=== PATIENT | female | born 1945 | race Caucasian/White ===

== ENCOUNTER 2017-11-24 10:24 | Day surgery (SDC) | payer MEDICARE, OTHER, SELFPAY ==
--- NOTE | 2017-11-24 07:53 | PM.PREOP ---
Pre-operative Note Interval Note Pre-op Check: Yes History & Physical Reviewed by Physician Changes: No
[2017-11-24 11:40] VITALS: BP 132/70; PULSE 54; RESP 18; TEMP 36.6; O2SAT 100; BMI 25.8
[2017-11-24] MEDS: PROPARACAINE 0.5% OPHTH SOL 2 DROPS EYE-OP (11:45)
[2017-11-24] MEDS: CATARACT EYE COMPOUND (10 DROPS/SYRINGE) 3 DROPS EYE-OP (11:50)
[2017-11-24] MEDS: METOPROLOL 12.5 MG TABLET PO (12:40)
--- NOTE | 2017-11-24 12:56 | PM.PREOP ---
Pre-operative Note Interval Note Pre-op Check: Yes History & Physical Reviewed by Physician Changes: No
[2017-11-24] MEDS: LIDOCAINE 2% 4 ML, BUPIVACAINE 0.5% (PF) 4 ML, HYALURONIDASE 150 UNIT INJ (13:06)
[2017-11-24] MEDS: LIDOCAINE 1% W/EPI INJ 20 ML INJ (13:06)
[2017-11-24] MEDS: CHONDROIDTIN/SOD HYALURONATE 1.05 ML SYRINGE INTRAOCULA (13:33)
[2017-11-24] MEDS: CARBACHOL 1.5 ML VIAL INJ (13:33)
[2017-11-24] MEDS: HYALURONATE SODIUM 10 MG/ML SYRINGE INJ (13:33)
[2017-11-24] MEDS: BALANCED SALT IRRIG SOLN NO.2 15 ML IRRIG.SOLN IRR (13:33)
[2017-11-24] MEDS: MOXIFLOXACIN OPHTH DROPS 3 ML BOTTLE 2 DROPS INJ (13:34)
[2017-11-24] MEDS: NEOMYCIN/POLY/DEX OPHTH OINT 1 APPLIC EYE-LEFT (13:35)
[2017-11-24] MEDS: OFLOXACIN 0.3% OPHTH 5 ML 2 DROPS EYE-LEFT (13:35)
[2017-11-24] MEDS: TRIAMCINOLONE 50 MG/5 ML VIAL INJ (13:36)
[2017-11-24] MEDS: PHENYLEPHRINE/LIDOCAINE VIAL (OR) 0.2 ML EYE-OP (13:36)
[2017-11-24] MEDS: BALANCED SALT IRRIG SOLN NO.2 500 ML, EPINEPHrine 1 MG IRR (13:37)
--- NOTE | 2017-11-24 13:59 | PM.OP.1 ---
Operative Date/Time/Diagnoses Date of procedure: 11/24/17 Time of procedure: 13:59 Procedure & Clinicians Procedure: Date of service: November 24, 2017 Preoperative diagnoses: 1. Nuclear sclerotic Cataract 2. Spastic entropion. 3. Autoimmune hypothyroidism 4. Deafness right ear Postoperative diagnoses: 1. Cataract removal with phacoemulsification with posterior chamber intraocular lens implant. Procedure: Phacoemulsification with posterior chamber intraocular lens implant Surgeon: Kassandra Aguilar MD Complications: None Specimen: None Implant: ZCBOO+19.0 Blood loss: None Anesthesia: Retrobulbar with monitored standby Anesthesiologist: Harman Hoff Description of procedure: Patient is a 72 year old the with decreased vision due to cataract which is affecting activities of daily living. She wants surgery to improve vision. She was taken to the operating room and given IV sedation. A retrobulbar block consisting of 6 cc of 2% xylocaine without epinephrine mixed half and half with 0.5% Marcaine with 1 cc of hyaluronidase added is placed between the medial and lateral 1/3 of the inferior orbital rim. Lid akinesia is obtain with 1% xylocaine with epinephrine infiltrated along the lid margin and along the lower lid due to severe spastic entropion. The eye is manually massaged for 30 sec, prepped using Betadine solution, and draped in the usual sterile fashion. Temporal approach was made, a 1 mm side-port incision was made at the 12 oclock meridian. Phenylephrine 1.5% mixed with 1% xylocaine 0.2 cc was placed into the anterior chamber. Viscoat followed by Healon was then placed. A 2.6 mm clear incision with a 2.6 mm blade was placed at the 3 oclock meridian. A 360 degree capsulorrhexis style capsulotomy was then performed with a cystitome needle on a Healon. Hydrodelineation and hydrodissection were performed. The phacoemulsification unit is introduced, and sculpting notice used to groove the central lens. It is then removed in chopping mode. Epi nucleus is removed with epinuclear mode and irrigation aspiration was used to remove the peripheral cortex. The posterior capsule is polished. The intraocular lens is selected, inspected, power confirmed, and placed in the posterior chamber. The pupil was constricted. The wound was stromally hydrated and tested for leaks, there was none and was left sutureless. Vigamox 0.1 cc was placed into the anterior chamber. Kenalog 0.2 cc was placed in the superior subconjunctival space. A drop of antibiotic and was placed and the eye was patched and shielded. The patient was stable and returned to the recovery room in excellent condition. Dictated by: Kassandra Aguilar MD Copy to: [facility] Same procedure as scheduled: Yes
[2017-11-24 17:36] VITALS: BP 128/67; PULSE 55; RESP 16; TEMP 36.2; O2SAT 100
--- NOTE | 2017-11-24 17:44 | SUR.PHASEII ---
vitals charted at 1736 were vitals taken at 1400
== END 2017-11-24 14:05 | disposition home or self-care (01) ==
LOC: OR 10:28
PROVIDERS: PCP Family Medicine; Visit Provider Ophthalmology
DX: H25.12 Age-related nuclear cataract, left eye (principal); E03.9 Hypothyroidism, unspecified; I49.9 Cardiac arrhythmia, unspecified; H02.0 Entropion and trichiasis of eyelid
CPT/HCPCS: J0171; J2250; J2704; J3010; J3301; J3470

== ENCOUNTER → 2017-11-25 09:30 | Outpatient (CLI) | payer MEDICARE, OTHER, SELFPAY ==
[2017-11-25 12:18] LABS: Thyroid Stimulating Hormone 0.49 uIU/mL (0.47-4.68)
== END ==
PROVIDERS: PCP Family Medicine; Visit Provider Family Medicine
DX: E03.9 Hypothyroidism, unspecified (principal)
CPT/HCPCS: 36415; 84443

== ENCOUNTER 2017-12-29 08:15 | Day surgery (SDC) | payer MEDICARE, OTHER, SELFPAY ==
--- NOTE | 2017-12-29 08:13 | PM.PREOP ---
Pre-operative Note Interval Note Pre-op Check: Yes History & Physical Reviewed by Physician Changes: No
[2017-12-29] MEDS: PROPARACAINE 0.5% OPHTH SOL 2 DROPS EYE-OP (08:45)
[2017-12-29] MEDS: CATARACT EYE COMPOUND (10 DROPS/SYRINGE) 3 DROPS EYE-OP (08:50)
[2017-12-29 08:55] VITALS: BP 129/75; PULSE 64; RESP 15; TEMP 36.2; O2SAT 100; BMI 25.4
[2017-12-29] MEDS: CARBACHOL 1.5 ML VIAL INJ (10:14)
[2017-12-29] MEDS: BALANCED SALT IRRIG SOLN NO.2 15 ML IRRIG.SOLN IRR (10:14)
[2017-12-29] MEDS: MOXIFLOXACIN OPHTH DROPS 3 ML BOTTLE 2 DROPS INJ (10:15)
[2017-12-29] MEDS: LIDOCAINE 1% W/EPI INJ 20 ML INJ (10:15)
[2017-12-29] MEDS: CHONDROIDTIN/SOD HYALURONATE 1.05 ML SYRINGE INTRAOCULA (10:15)
[2017-12-29] MEDS: HYALURONATE SODIUM 10 MG/ML SYRINGE INJ (10:15)
[2017-12-29] MEDS: OFLOXACIN 0.3% OPHTH 5 ML 2 DROPS EYE-RIGHT (10:16)
[2017-12-29] MEDS: PHENYLEPHRINE/LIDOCAINE VIAL (OR) 0.2 ML EYE-OP (10:16)
[2017-12-29] MEDS: NEOMYCIN/POLY/DEX OPHTH OINT 1 APPLIC EYE-RIGHT (10:16)
[2017-12-29] MEDS: LIDOCAINE 2% 4 ML, BUPIVACAINE 0.5% (PF) 4 ML, HYALURONIDASE 150 UNIT INJ (10:17)
[2017-12-29] MEDS: BALANCED SALT IRRIG SOLN NO.2 500 ML, EPINEPHrine 1 MG IRR (10:17)
[2017-12-29] MEDS: TRIAMCINOLONE 50 MG/5 ML VIAL INJ (10:17)
[2017-12-29 10:45] VITALS: BP 138/68; PULSE 54; RESP 15; TEMP 36; O2SAT 100
[2017-12-29 10:59] VITALS: BP 138/68; PULSE 51; RESP 16; TEMP 36.2; O2SAT 100
--- NOTE | 2017-12-29 14:28 | PM.OP.1 ---
Operative Date/Time/Diagnoses Date of procedure: 12/29/17 Time of procedure: 10:00 Procedure & Clinicians Procedure: Date of service: December 29, 2017 Preoperative diagnoses: 1. Right nuclear sclerotic and cortical cataract. 2. Ectropion. 3. Autoimmune hypothyroidism. 4. Cardiac arrhythmia. Postoperative diagnoses: 1. Cataract removal with phacoemulsification with posterior chamber intraocular lens implant. Procedure: Phacoemulsification with posterior chamber intraocular lens implant Surgeon: Kassandra Aguilar MD Complications: None Specimen: None Implant: ZCBOO+19.5 Blood loss: None Anesthesia: Retrobulbar with monitored standby Anesthesiologist: Delfino Valdez M.D. Description of procedure: Patient is a 72 year old female with decreased vision due to cataract which is affecting activities of daily living. She wants surgery to improve vision. She will need ectropion repair both eyes after she is healed. She was taken to the operating room and given IV sedation. A retrobulbar block insert consisting of 6 cc of 2% xylocaine without epinephrine mixed half and half with 0.5% Marcaine with 1 cc of hyaluronidase added is placed between the medial and lateral 1/3 of the inferior orbital rim. Lid akinesia is obtain with 1% xylocaine with epinephrine infiltrated along the lid margin. The eye is manually massaged for 30 sec, prepped using Betadine solution, and draped in the usual sterile fashion. Temporal approach was made, a 1 mm side-port incision was made at the 7:30 position. Phenylephrine 1.5% mixed with 1% xylocaine 0.2 cc was placed into the anterior chamber. Viscoat followed by Jaskaran was then placed. A 2.6 mm clear incision with a 2.6 mm blade was placed at the 170 degree meridian. Zonules are slightly loose but hold well during the procedure. A 360 degree capsulorrhexis style capsulotomy was then performed with a cystitome needle on a Healon. Hydrodelineation and hydrodissection were performed. The phacoemulsification unit is introduced, and sculpting notice used to groove the central lens. It is then removed in chopping mode. Epi nucleus is removed with epinuclear mode and irrigation aspiration was used to remove the peripheral cortex. The posterior capsule is polished. The intraocular lens is selected, inspected, power confirmed, and placed in the posterior chamber. The pupil was constricted. The wound was stromally hydrated and tested for leaks, there was none and was left sutureless. Vigamox 0.1 cc was placed into the anterior chamber. Kenalog 0.2 cc was placed in the superior subconjunctival space. A drop of antibiotic and was placed and the eye was patched and shielded. The patient was stable and returned to the recovery room in excellent condition. Dictated by: Kassandra Aguilar MD Copy to: [facility]
== END 2017-12-29 11:05 | disposition home or self-care (01) ==
LOC: OR 08:18
PROVIDERS: PCP Family Medicine; Visit Provider Ophthalmology
DX: H25.11 Age-related nuclear cataract, right eye (principal); H26.8 Other specified cataract; H02.109 Unspecified ectropion of unspecified eye, unspecified eyelid; E06.3 Autoimmune thyroiditis; I49.9 Cardiac arrhythmia, unspecified
CPT/HCPCS: J0171; J2704; J3301; J3470

== ENCOUNTER → 2018-01-28 08:46 | Outpatient (CLI) | payer MEDICARE, OTHER, SELFPAY ==
[2018-01-28 10:06] LABS: Add Manual Diff / Slide Review NO; Basophils Percent Auto 1.5 % (0-2); Eosinophils Percent Auto 4.3 % (2-4); Lymphocytes Percent Auto 26.6 % (25-40); Mean Corpuscular HGB Conc 33.4 % (30-36); Mean Corpuscular Hemoglobin 31.3 PG (26-34); Mean Corpuscular Volume 93.6 fL (80-100); Monocytes Percent Auto 12.6 % (3-14); Neutrophils Absolute Auto 2300 /uL (3000-5900); Platelet Count 258 X10^3/uL (150-400); Red Blood Cell Count 4.48 X10^6/uL (4.0-5.2); Red Cell Distribution Width 13.3 % (11.6-14.8); White Blood Cell Count 4.2 X10^3/uL (4.5-11.0)
[2018-01-28 10:23] LABS: Alanine Aminotransferase 59 IU/L (9-52); Albumin 4.3 g/dL (3.5-5.0); Albumin Globulin Ratio 1.4 (1.0-2.8); Alkaline Phosphatase 148 U/L (38-126); Aspartate Aminotransferase 59 IU/L (14-36); Bilirubin Total 0.9 mg/dL (0.2-1.3); Blood Urea Nitrogen 25 mg/dL (7-17); Carbon Dioxide 26 mmol/L (22-32); Chloride 105 mmol/L (98-107); Cholesterol 208 mg/dL (140-199); Estimated Glomerular Filt Rate 54.1 mL/min (>60); Glucose 87 mg/dL (80-110); HDL Cholesterol 71 mg/dL (40-60); HEMOLYSIS < 15 (0-50); LDL Cholesterol Calculated 123 mg/dL (<100); Potassium 3.8 mmol/L (3.4-5.1); Sodium 143 mmol/L (137-145); Total Protein 7.3 g/dL (6.3-8.2); Triglycerides 70 mg/dL (35-150)
[2018-01-28 10:31] LABS: Gamma Glutamyl Transpeptidase 194 U/L (12-43)
[2018-01-28 10:34] LABS: Vitamin D 25 Hydroxy (D3) 63.3 ng/mL (30.0-100.0)
[2018-01-28 10:35] LABS: Free T3, Triiodothyronine Free 3.21 pg/mL (2.77-5.27); Free T4, Direct Thyroxine 1.16 ng/dL (0.78-2.19)
[2018-01-29 16:16] LABS: Anti Thyroglobulin Antibody < 1 IU/mL (< 2); Thyroid Peroxidase Antibodies 27 IU/mL (< 9)
[2018-01-31 01:27] LABS: Homocysteine 11.3 umol/L (< 10.4)
== END ==
PROVIDERS: Family Provider Family Medicine; PCP Family Medicine; Visit Provider Naturopath
DX: R94.5 Abnormal results of liver function studies (principal); K57.32 Diverticulitis of large intestine without perforation or abscess without bleeding; R03.0 Elevated blood-pressure reading, without diagnosis of hypertension; E06.3 Autoimmune thyroiditis; M85.89 Other specified disorders of bone density and structure, multiple sites
CPT/HCPCS: 36415; 80053; 80061; 82306; 82977; 83090; 84439; 84443; 84481; 85025; 86376; 86800

== ENCOUNTER 2018-02-09 09:23 | Day surgery (SDC) | payer MEDICARE, OTHER, SELFPAY ==
--- NOTE | 2018-02-08 07:39 | PM.PREOP ---
Pre-operative Note Interval Note Pre-op Check: Yes History & Physical Reviewed by Physician Changes: No
[2018-02-09 10:39] VITALS: BP 110/68; PULSE 55; RESP 16; TEMP 36.6; O2SAT 98; BMI 25.4
[2018-02-09] MEDS: LACTATED RINGERS 1,000 ML 42 ML IV (10:50)
[2018-02-09] MEDS: LIDOCAINE 1% W/EPI 3 ML, SODIUM CHLORIDE 0.9% 2 ML, HYALURONIDASE 150 UNIT INJ (11:55)
[2018-02-09] MEDS: LIDOCAINE 2% W/EPI 3 ML, BUPIVACAINE 0.5% (PF) 2 ML, HYALURONIDASE 150 UNIT INJ (12:11)
[2018-02-09 12:58] VITALS: BP 104/73; PULSE 66; RESP 14; TEMP 37.3; O2SAT 96
[2018-02-09 13:25] VITALS: BP 112/77; PULSE 62; RESP 16; TEMP 36.8; O2SAT 97
--- NOTE | 2018-02-09 17:05 | P.OP_ITS ---
Operative Date/Time/Diagnoses Date of procedure: 02/09/18 Time of procedure: 11:45 Procedure & Clinicians Procedure: Patient is a 73-year-old female who has corneal irritation due to in- turning eyelashes from spastic entropion. This is worse in the left than the right eye. She has had previous cataract surgery and had to have Botox in her lower left lid in order to prevent corneal irritation until this surgery could be performed to relieve her ectropion. The Botox did cause a transient facial palsy and she did not wish to have that as a permanent treatment plan. The Botox is now worn off and she is stable for surgery. She has multiple allergies and is sensitive to topical Betadine. She was taken to the operating room given IV sedation and then local infiltration with 1% xylocaine mixed half and half with sodium chloride and hyuronidase. 1 cc 2 and 0.5 cc was given to each eyelid. This was then supplemented with 2% lidocaine mixed half and half with 0.5% Marcaine with 1 cc of hyaluridase. Another 2 cc to each lower lid. Attention was placed to the right lower lid. Three interrupted Quickert sutures were placed in the lower lid for rotation of the eyelashes. A lateral canthotomy 1 cm was made. Lysis of the inferior canthal tendon was performed. A tarsal strip with removal of the anterior and posterior lamella with removal of 1 cc of tissue and eyelashes was made. This was placed through the periosteum with a double-armed 4 0 Mersilene suture and tied in position. Excellent lid contour resulted. The margin was then recreated with interrupted and running 6 0 Vicryl sutures. Attention was placed to the left lower lid. Four Quickert full-thickness sutures were placed to rotate the lashes. A lateral canthotomy of 1 cm was performed. Lysis of the inferior canthal tendon. Tarsal strip with 2 mm removal with same technique as right. Four 0 Mersilene was used double-armed to anchor suture to periosteum. Lateral canthus was then closed with interrupted and running 6 0 Vicryl suture. A benign nevus was also removed from the middle of the lower lid and 2 interrupted sutures were placed. No complications. Maxitrol ointment was placed to both lids after removing Betadine which had been placed sparingly prior to the procedure. No reaction occurred. She returned recovery room in stable condition. Same procedure as scheduled: Yes Indications: 1. Bilateral lower lid ectropion. Click Yes if Unassisted: Yes Anesthesia Type: MAC +/- and Local Operative Notes Specimen(s): none sent Estimated Blood Loss (mL): 3 Blood products transfused: none Complications: none Condition: stable Disposition: same day surgery Plan for aftercare: See Handout.
== END 2018-02-09 13:30 | disposition home or self-care (01) ==
LOC: OR 09:25
PROVIDERS: PCP Family Medicine; Visit Provider Ophthalmology
PROC: (CPT 67917; principal; 2018-02-09 10:45)
DX: H02.105 Unspecified ectropion of left lower eyelid (principal); H02.102 Unspecified ectropion of right lower eyelid; E06.3 Autoimmune thyroiditis; I49.9 Cardiac arrhythmia, unspecified; R42 Dizziness and giddiness
CPT/HCPCS: 67917; J2250; J2704; J3010; J3470

== ENCOUNTER → 2018-04-01 11:37 | Outpatient (CLI) | payer MEDICARE, OTHER, SELFPAY ==
[2018-04-01 13:24] LABS: Alanine Aminotransferase 54 IU/L (9-52); Albumin Globulin Ratio 1.4 (1.0-2.8); Alkaline Phosphatase 126 U/L (38-126); Aspartate Aminotransferase 45 IU/L (14-36); Bilirubin Unconjugated 0.8 mg/dL (0.0-1.1); Globulin 2.8 g/dL (1.7-4.1); HEMOLYSIS < 15 (0-50); Total Protein 6.8 g/dL (6.3-8.2)
== END ==
PROVIDERS: Family Provider Naturopath; PCP Family Medicine; Visit Provider Family Medicine
DX: R74.0 Nonspecific elevation of levels of transaminase and lactic acid dehydrogenase [LDH] (principal)
CPT/HCPCS: 36415; 80076

== ENCOUNTER → 2018-06-16 13:46 | Outpatient (CLI) | payer MEDICARE, OTHER, SELFPAY ==
[2018-06-16 15:40] LABS: Alanine Aminotransferase 50 IU/L (9-52); Albumin 4.2 g/dL (3.5-5.0); Albumin Globulin Ratio 1.4 (1.0-2.8); Alkaline Phosphatase 142 U/L (38-126); Aspartate Aminotransferase 40 IU/L (14-36); Bilirubin Unconjugated 0.8 mg/dL (0.0-1.1); Globulin 2.9 g/dL (1.7-4.1); HEMOLYSIS < 15 (0-50); Total Protein 7.1 g/dL (6.3-8.2)
== END ==
PROVIDERS: PCP Family Medicine; Visit Provider Family Medicine
DX: R74.0 Nonspecific elevation of levels of transaminase and lactic acid dehydrogenase [LDH] (principal)
CPT/HCPCS: 36415; 80076

== ENCOUNTER → 2018-09-24 08:39 | Outpatient (CLI) | payer MEDICARE, OTHER, SELFPAY ==
[2018-09-24 09:58] LABS: Hemoglobin A1C% w Est Avg Glu 5.2 % (4.0-6.0)
[2018-09-24 10:17] LABS: Add Manual Diff / Slide Review NO; Basophils Absolute Auto 100 /uL (0-100); Basophils Percent Auto 1.5 % (0-2); Eosinophils Absolute Auto 200 /uL (0-450); Eosinophils Percent Auto 4.5 % (2-4); Hematocrit 42.3 % (36-46); Hemoglobin 14.5 g/dL (12.0-16.0); Lymphocytes Absolute Auto 1100 /uL (1100-4500); Lymphocytes Percent Auto 24.1 % (25-40); Mean Corpuscular HGB Conc 34.1 % (30-36); Mean Corpuscular Hemoglobin 31.9 PG (26-34); Mean Corpuscular Volume 93.3 fL (80-100); Monocytes Absolute Auto 500 /uL (0-900); Monocytes Percent Auto 11.5 % (3-14); Neutrophils Absolute Auto 2800 /uL (1500-7000); Neutrophils Percent Auto 58.4 % (50-75); Platelet Count 244 X10^3/uL (150-400); Red Blood Cell Count 4.54 X10^6/uL (4.0-5.2); Red Cell Distribution Width 13.7 % (11.6-14.8); White Blood Cell Count 4.7 X10^3/uL (4.5-11.0)
[2018-09-24 10:22] LABS: Alanine Aminotransferase 53 IU/L (9-52); Albumin 4.2 g/dL (3.5-5.0); Albumin Globulin Ratio 1.3 (1.0-2.8); Alkaline Phosphatase 157 U/L (38-126); Aspartate Aminotransferase 63 IU/L (14-36); Bilirubin Total 1.3 mg/dL (0.2-1.3); Blood Urea Nitrogen 30 mg/dL (7-17); Calcium 9.4 mg/dL (8.4-10.2); Carbon Dioxide 29 mmol/L (22-32); Chloride 105 mmol/L (98-107); Cholesterol 196 mg/dL (140-199); Estimated Glomerular Filt Rate 43.8 mL/min (>60); Gamma Glutamyl Transpeptidase 171 U/L (12-43); Globulin 3.2 g/dL (1.7-4.1); Glucose 86 mg/dL (80-110); HDL Cholesterol 73 mg/dL (40-60); HEMOLYSIS < 15 (0-50); LDL Cholesterol Calculated 111 mg/dL (<100); Potassium 4.4 mmol/L (3.4-5.1); Sodium 142 mmol/L (137-145); Total Protein 7.4 g/dL (6.3-8.2); Triglycerides 59 mg/dL (35-150); Uric Acid 5.6 mg/dL (2.5-6.2)
[2018-09-24 10:26] LABS: High Sensitivity CRP - Cardiac 1.8 mg/L (1.0-3.0)
[2018-09-24 10:27] LABS: Rheumatoid Factor < 8.6 IU/mL (<12.0)
[2018-09-24 10:35] LABS: Erythrocyte Sedimentation Rate 14 MM/HR (0-20)
[2018-09-24 10:39] LABS: Free T3, Triiodothyronine Free 3.07 pg/mL (2.77-5.27)
[2018-09-24 10:51] LABS: Cortisol AM (Before 10AM) 14.2 ug/dL (4.46-22.7); Vitamin D 25 Hydroxy (D3) 66.5 ng/mL (30.0-100.0)
[2018-09-24 10:52] LABS: Thyroid Stimulating Hormone 0.56 uIU/mL (0.47-4.68)
[2018-09-24 10:55] LABS: Ferritin 75.6 ng/mL (11.1-264)
[2018-09-26 12:54] LABS: Homocysteine 11.3 umol/L (< 10.4)
[2018-09-27 15:01] LABS: Anti Thyroglobulin Antibody < 1 IU/mL (< 2); Thyroid Peroxidase Antibodies 15 IU/mL (< 9)
== END ==
PROVIDERS: PCP Family Medicine; Visit Provider Naturopath
DX: R94.5 Abnormal results of liver function studies (principal); K57.32 Diverticulitis of large intestine without perforation or abscess without bleeding; E06.3 Autoimmune thyroiditis; R03.0 Elevated blood-pressure reading, without diagnosis of hypertension; R73.09 Other abnormal glucose; E16.1 Other hypoglycemia; D50.9 Iron deficiency anemia, unspecified; M85.89 Other specified disorders of bone density and structure, multiple sites; R79.9 Abnormal finding of blood chemistry, unspecified; E55.9 Vitamin D deficiency, unspecified
CPT/HCPCS: 36415; 80053; 80061; 82306; 82533; 82542; 82728; 82977; 83036; 83090; 84439; 84443; 84481; 84550; 85025; 85651; 86140; 86376; 86430; 86800

== ENCOUNTER → 2018-10-03 15:39 | Outpatient (ROUT) | payer MEDICARE, OTHER, SELFPAY ==
[2018-10-03 15:53] LABS: Prothrombin Time 11.7 SECONDS (10.1-12.7)
== END ==
PROVIDERS: PCP Family Medicine; Visit Provider Family Medicine
DX: I49.9 Cardiac arrhythmia, unspecified (principal)
CPT/HCPCS: 85610

== ENCOUNTER → 2019-01-07 10:36 | Outpatient (CLI) | payer MEDICARE, OTHER, SELFPAY ==
--- NOTE | 2019-01-07 | DI.RAD.S_ITS ---
PROCEDURE: XR LUMBAR SPINE 2-3V INDICATIONS: BILATERAL HIP PAIN TECHNIQUE: 3 views of the lumbar spine were acquired. COMPARISON: [facility], MR, MR LUMBAR SPINE WO CON, 01/07/2019, 10:41. FINDINGS: Bones: Moderate dextroconvex thoracolumbar scoliotic curvature is seen. No focal AP alignment abnormality is seen. 5 nonrib-bearing, lumbar type vertebral bodies are seen. No displaced fractures are seen. No suspicious lytic or blastic lesions are seen. There is at least moderate disc space narrowing at L5-S1, with moderate disc space narrowing at L4-L5. Mild disc space narrowing is seen at L3-L4. Endplate irregularity and sclerosis are seen, which are most prominent at L5-S1. Lower lumbar spine facet arthropathy is seen. Soft tissues: Overlying bowel gas pattern is normal. No suspicious soft tissue calcifications. Atherosclerotic calcification is noted. IMPRESSION: Degenerative changes are seen, which are most prominent at L5-S1. Dictated by: Alvin Li M.D. on 01/07/2019 at 11:52 Approved by: Alvin Li M.D. on 01/07/2019 at 11:54
--- NOTE | 2019-01-07 | DI.MRI.S_ITS ---
PROCEDURE: MR LUMBAR SPINE WO CON INDICATIONS: PAIN IN BILATERAL HIPS TECHNIQUE: Noncontrast sagittal T1 spin echo and T2 fast echo, sagittal STIR, axial T1 and T2 fast spin echo through the lumbar spine. In cases with scoliosis, additional coronal T2 fast spin echo may be performed. COMPARISON: [facility], CR, XR LUMBAR SPINE 2-3V, 01/07/2019, 11:21. FINDINGS: Image quality: Excellent. Alignment and Curvature: There is normal bony alignment. Bone Marrow: Marrow is of normal overall signal. No acute vertebral body compression fractures. Spinal Cord: Conus medullaris terminates at the L1 level. Visualized cord demonstrates normal signal and size. Paraspinous Soft Tissues: No paravertebral masses. L1-L2: Normal appearance. L2-L3: Loss of disc signal. Mild, diffuse disc bulge. No central stenosis. No neural foraminal narrowing. No neural compression. L3-L4: Loss of disc signal and height. Mild, diffuse disc bulge. Mild bilateral facet hypertrophy. No central stenosis. Mild left neural foraminal narrowing. No neural compression. L4-L5: Loss of disc signal and height. Mild, diffuse disc bulge. mild bilateral facet hypertrophy. Mild narrowing of the central canal. Mild right neural foraminal narrowing. No neural compression. L5-S1: Loss of disc signal and height. Mild, diffuse disc bulge. mild bilateral facet hypertrophy. No central stenosis. No neural foraminal narrowing. No neural compression. IMPRESSION: 1. Multilevel degenerative disc disease. 2. Multilevel facet arthropathy. 3. Mild L4-L5 central canal narrowing. 4. Mild left L3-L4 neural foraminal narrowing. Mild right L4-L5 neural foraminal narrowing. 5. No neural compression. Dictated by: Nancy Mckeon MD, PhD on 01/09/2019 at 12:54 Approved by: Nancy Mckeon MD, PhD on 01/09/2019 at 13:16
== END ==
PROVIDERS: Family Provider Anesthesiology Pain Medicine; PCP Family Medicine; Visit Provider Family Medicine
DX: M25.552 Pain in left hip (principal); M25.551 Pain in right hip; M51.36 Other intervertebral disc degeneration, lumbar region; M47.816 Spondylosis without myelopathy or radiculopathy, lumbar region; M47.817 Spondylosis without myelopathy or radiculopathy, lumbosacral region; M48.061 Spinal stenosis, lumbar region without neurogenic claudication; M48.07 Spinal stenosis, lumbosacral region
CPT/HCPCS: 72100; 72148

== ENCOUNTER → 2019-02-10 09:56 | Outpatient (CLI) | payer MEDICARE, OTHER, SELFPAY ==
--- NOTE | 2019-02-10 | DI.MRI.S_ITS ---
PROCEDURE: MR PELVIS WO CON INDICATIONS: BILATERAL HIP PAIN/ PELVIC PAIN TECHNIQUE: Noncontrast coronal and axial T1 spin echo and STIR through the bony pelvis. COMPARISON: None. FINDINGS: Image quality: Excellent. Bones: No fracture identified. Lower lumbar spondylosis. Mild bilateral hip degeneration. Subchondral degenerative cysts seen in the right acetabulum. There are also periarticular subcentimeter cysts, for example seen on image 24 series 7 at the right posterior acetabulum. Technically, this could represent paralabral cysts in the setting of occult labral tear. Dedicated hip MR arthrography could be performed for further assessment No evidence of avascular necrosis. Unremarkable appearance of the sacroiliac joints. Tendons: The gluteus medius and minimus tendons appear mildly thickened and T2 hyperintense signal change with adjacent soft tissue edema. This appears minimally asymmetric, right slightly greater than left. The iliopsoas tendon appears intact, without adjacent bursal fluid collections or evidence for impingement syndrome. Mild thickening and T2 hyperintense signal change involving the right hamstring origin, which is asymmetric compared to the left. The straight and reflected heads of the rectus femoris muscle origin appear intact, as well as the conjoint tendon. Soft tissues: Visualized muscles demonstrate normal bulk and internal signal. No joint effusions. No free pelvic fluid. Bladder wall thickness is normal. Genitourinary structures and bowel loops appear normal where visualized. IMPRESSION: Bilateral hip joint degeneration with subchondral acetabular cysts. However, on the right, possible paralabral cyst along the posterior acetabulum could be related to occult labral tear. Alternatively, these could be periarticular ganglion/synovial cysts. If clinically indicated, dedicated right-sided hip MR arthrogram could be performed Bilateral hip abductor insertional tendinopathy. Asymmetric right proximal hamstring origin tendinopathy. Lower lumbar spondylosis. Dictated by: Martin Nunes M.D. on 02/10/2019 at 16:41 Approved by: Martin Nunes M.D. on 02/10/2019 at 16:51
[2019-02-10 11:18] LABS: Add Manual Diff / Slide Review NO; Basophils Absolute Auto 100 /uL (0-100); Basophils Percent Auto 1.1 % (0-2); Eosinophils Absolute Auto 200 /uL (0-450); Eosinophils Percent Auto 4.4 % (2-4); Hematocrit 41.5 % (36-46); Hemoglobin 13.8 g/dL (12.0-16.0); Lymphocytes Absolute Auto 1500 /uL (1100-4500); Lymphocytes Percent Auto 31.8 % (25-40); Mean Corpuscular HGB Conc 33.3 % (30-36); Mean Corpuscular Hemoglobin 31.1 PG (26-34); Mean Corpuscular Volume 93.4 fL (80-100); Monocytes Absolute Auto 500 /uL (0-900); Monocytes Percent Auto 11.7 % (3-14); Neutrophils Absolute Auto 2400 /uL (1500-7000); Platelet Count 254 X10^3/uL (150-400); Red Blood Cell Count 4.44 X10^6/uL (4.0-5.2); Red Cell Distribution Width 13.5 % (11.6-14.8); White Blood Cell Count 4.7 X10^3/uL (4.5-11.0)
[2019-02-10 12:46] LABS: Alanine Aminotransferase 74 IU/L (<35); Albumin 4.2 g/dL (3.5-5.0); Albumin Globulin Ratio 1.4 (1.0-2.8); Alkaline Phosphatase 235 U/L (38-126); Aspartate Aminotransferase 70 IU/L (14-36); BUN Creatinine Ratio 20.9 (6-22); Bilirubin Total 1.5 mg/dL (0.2-1.3); Blood Urea Nitrogen 23 mg/dL (7-17); Calcium 9.3 mg/dL (8.4-10.2); Carbon Dioxide 27 mmol/L (22-32); Chloride 107 mmol/L (98-107); Cholesterol 219 mg/dL (140-199); Estimated Glomerular Filt Rate 48.3 mL/min (>60); Glucose 85 mg/dL (80-110); HDL Cholesterol 87 mg/dL (40-60); HEMOLYSIS < 15 (0-50); LDL Cholesterol Calculated 118 mg/dL (<100); Potassium 4.5 mmol/L (3.4-5.1); Sodium 142 mmol/L (137-145); Total Protein 7.2 g/dL (6.3-8.2); Triglycerides 72 mg/dL (35-150); VLDL Cholesterol Calculated 14 mg/dL (2-30)
[2019-02-10 13:20] LABS: Thyroid Stimulating Hormone 0.37 uIU/mL (0.47-4.68)
== END ==
PROVIDERS: Family Provider Anesthesiology Pain Medicine; PCP Family Medicine; Visit Provider Anesthesiology Pain Medicine
DX: R10.2 Pelvic and perineal pain (principal); M25.552 Pain in left hip; M25.551 Pain in right hip; M16.0 Bilateral primary osteoarthritis of hip; M47.816 Spondylosis without myelopathy or radiculopathy, lumbar region; M85.68 Other cyst of bone, other site; M67.98 Unspecified disorder of synovium and tendon, other site; E78.5 Hyperlipidemia, unspecified; E03.9 Hypothyroidism, unspecified; I49.9 Cardiac arrhythmia, unspecified
CPT/HCPCS: 36415; 72195; 80053; 80061; 84443; 85025

== ENCOUNTER → 2019-03-09 15:44 | Outpatient (CLI) | payer MEDICARE, OTHER, SELFPAY ==
[2019-03-09 17:11] LABS: HEMOLYSIS < 15 (0-50); Iron 121 ug/dL (37-170)
[2019-03-09 17:21] LABS: Percent Iron Saturation 37 % (15-50); Total Iron Binding Capacity 327 ug/dL (265-497); Transferrin 272 mg/dL (206-381)
[2019-03-09 17:58] LABS: Hep C Virus Ab w/Reflex Quant NEGATIVE s/c (NEGATIVE)
[2019-03-11 10:05] LABS: Anti Mitochondrial ABY IGG < 20.1 Units (< 20.1)
[2019-03-11 12:42] LABS: Hemoglobin A1C% w Est Avg Glu 5.3 % (4.0-6.0)
[2019-03-11 13:56] LABS: Hepatitis BE Antigen Nonreactive (Nonreactive)
[2019-03-13 09:12] LABS: ANA Screen, IFA POSITIVE (NEGATIVE)
== END ==
PROVIDERS: Family Provider Internal Medicine Cardiovascular Disease; PCP Family Medicine; Referring Provider Family Medicine; Visit Provider Internal Medicine Gastroenterology
DX: R94.5 Abnormal results of liver function studies (principal)
CPT/HCPCS: 36415; 83036; 83516; 83540; 83550; 86038; 86803; 87350

== ENCOUNTER → 2019-09-26 11:33 | Outpatient (CLI) | payer MEDICARE, OTHER, SELFPAY ==
[2019-09-26 13:08] LABS: Erythrocyte Sedimentation Rate 8 MM/HR (0-20)
[2019-09-26 13:10] LABS: Free T3, Triiodothyronine Free 2.99 pg/mL (2.77-5.27)
[2019-09-26 13:26] LABS: Thyroid Stimulating Hormone < 0.015 uIU/mL (0.47-4.68)
[2019-09-26 13:58] LABS: Cortisol AM (Before 10AM) 31.3 ug/dL (4.46-22.7)
[2019-09-26 14:03] LABS: Ferritin 45 ng/mL (11-264)
[2019-09-26 14:58] LABS: High Sensitivity CRP - Cardiac 1.3 mg/L (1.0-3.0)
[2019-09-29 13:36] LABS: ANA Screen, IFA Positive (.)
== END ==
PROVIDERS: Family Provider Internal Medicine Cardiovascular Disease; PCP Family Medicine; Referring Provider Naturopath; Visit Provider Naturopath
DX: K75.4 Autoimmune hepatitis (principal); E06.3 Autoimmune thyroiditis; M35.9 Systemic involvement of connective tissue, unspecified; R94.5 Abnormal results of liver function studies
CPT/HCPCS: 36415; 82533; 82728; 84439; 84443; 84481; 85651; 86038; 86140; 86430

== ENCOUNTER → 2019-10-30 15:51 | Outpatient (CLI) | payer MEDICARE, OTHER, SELFPAY ==
[2019-10-30 17:25] LABS: Alanine Aminotransferase 44 IU/L (<35); Albumin Globulin Ratio 1.7 (1.0-2.8); Alkaline Phosphatase 153 U/L (38-126); Aspartate Aminotransferase 52 IU/L (14-36); Bilirubin Total 0.7 mg/dL (0.2-1.3); Bilirubin Unconjugated 0.6 mg/dL (0.0-1.1); Globulin 2.3 g/dL (1.7-4.1); HEMOLYSIS < 15 (0-50); Total Protein 6.3 g/dL (6.3-8.2)
== END ==
PROVIDERS: Family Provider Internal Medicine Cardiovascular Disease; PCP Family Medicine; Referring Provider Internal Medicine Gastroenterology; Visit Provider Internal Medicine Gastroenterology
DX: K73.9 Chronic hepatitis, unspecified (principal)
CPT/HCPCS: 36415; 80076

== ENCOUNTER → 2020-01-22 09:04 | Outpatient (CLI) | payer MEDICARE, OTHER, SELFPAY ==
[2020-01-22 23:12] LABS: COVID19 Sendout Not Detected (Not Detect)
== END ==
PROVIDERS: Family Provider Internal Medicine Cardiovascular Disease; PCP Family Medicine; Visit Provider Physician Assistant
DX: Z11.59 Encounter for screening for other viral diseases (principal)
CPT/HCPCS: 87635

== ENCOUNTER → 2020-02-10 14:05 | Outpatient (CLI) | payer MEDICARE, OTHER, SELFPAY ==
[2020-02-10 14:57] LABS: COVID19 -Nasal RAPID Negative (Negative)
== END ==
PROVIDERS: Family Provider Internal Medicine Cardiovascular Disease; PCP Family Medicine; Visit Provider Physician Assistant
DX: Z11.59 Encounter for screening for other viral diseases (principal)
CPT/HCPCS: 87635

== ENCOUNTER → 2020-07-10 15:59 | Outpatient (CLI) | payer MEDICARE, OTHER, SELFPAY ==
[2020-07-10 17:01] LABS: Erythrocyte Sedimentation Rate 14 MM/HR (0-20)
[2020-07-10 17:54] LABS: Alanine Aminotransferase 50 IU/L (<35); Albumin 4.2 g/dL (3.5-5.0); Albumin Globulin Ratio 1.4 (1.0-2.8); Alkaline Phosphatase 182 U/L (38-126); Aspartate Aminotransferase 56 IU/L (14-36); Bilirubin Total 0.9 mg/dL (0.2-1.3); Bilirubin Unconjugated 0.7 mg/dL (0.0-1.1); Gamma Glutamyl Transpeptidase 237 U/L (12-43); Globulin 3.1 g/dL (1.7-4.1); HEMOLYSIS < 15 (0-50); Total Protein 7.3 g/dL (6.3-8.2)
[2020-07-10 18:11] LABS: Free T3, Triiodothyronine Free 2.32 pg/mL (2.77-5.27); Free T4, Direct Thyroxine 1.26 ng/dL (0.78-2.19)
[2020-07-10 18:25] LABS: Thyroid Stimulating Hormone 0.089 uIU/mL (0.47-4.68)
== END ==
PROVIDERS: Family Provider Internal Medicine Cardiovascular Disease; PCP Family Medicine; Referring Provider Naturopath; Visit Provider Naturopath
DX: M32.10 Systemic lupus erythematosus, organ or system involvement unspecified (principal); M35.9 Systemic involvement of connective tissue, unspecified; R94.5 Abnormal results of liver function studies; E06.3 Autoimmune thyroiditis; K75.4 Autoimmune hepatitis
CPT/HCPCS: 36415; 80076; 82977; 84439; 84443; 84481; 85651; 86140

== ENCOUNTER 2020-11-26 17:38 | Emergency (ER) | payer MEDICARE, OTHER, SELFPAY ==
[2020-11-26 18:20] VITALS: BP 149/80; PULSE 88; RESP 18; TEMP 38.8; O2SAT 96; BMI 25.4
[2020-11-26 18:50] LABS: Add Manual Diff / Slide Review NO; Basophils Absolute Auto 0 /uL (0-100); Basophils Percent Auto 0.5 % (0-2); Eosinophils Absolute Auto 0 /uL (0-450); Eosinophils Percent Auto 0.4 % (2-4); Lymphocytes Absolute Auto 1100 /uL (1100-4500); Lymphocytes Percent Auto 11.6 % (25-40); Mean Corpuscular HGB Conc 34.1 % (30-36); Mean Corpuscular Hemoglobin 31.9 PG (26-34); Mean Corpuscular Volume 93.6 fL (80-100); Monocytes Absolute Auto 1100 /uL (0-900); Neutrophils Absolute Auto 7100 /uL (1500-7000); Neutrophils Percent Auto 75.5 % (50-75); Platelet Count 263 X10^3/uL (150-400); Red Blood Cell Count 4.38 X10^6/uL (4.0-5.2); Red Cell Distribution Width 13.4 % (11.6-14.8); White Blood Cell Count 9.4 X10^3/uL (4.5-11.0)
[2020-11-26 19:12] LABS: Alanine Aminotransferase 52 IU/L (<35); Albumin 4.3 g/dL (3.5-5.0); Albumin Globulin Ratio 1.2 (1.0-2.8); Alkaline Phosphatase 225 U/L (38-126); Aspartate Aminotransferase 53 IU/L (14-36); BUN Creatinine Ratio 16.3 (6-22); Bilirubin Total 1.4 mg/dL (0.2-1.3); Blood Urea Nitrogen 16 mg/dL (7-17); Calcium 9.3 mg/dL (8.4-10.2); Carbon Dioxide 28 mmol/L (22-32); Chloride 102 mmol/L (98-107); Globulin 3.6 g/dL (1.7-4.1); Glucose 94 mg/dL (80-110); HEMOLYSIS < 15 (0-50); Lipase 178 U/L (23-300); Potassium 3.8 mmol/L (3.4-5.1); Sodium 137 mmol/L (137-145); Total Protein 7.9 g/dL (6.3-8.2)
[2020-11-26 19:28] LABS: Procalcitonin 0.09 ng/mL (<0.5)
--- NOTE | 2020-11-26 19:32 | ED.GENADULT ---
HPI - General Adult General Chief complaint: Abdominal Pain Stated complaint: possible bowel obstruction Time Seen by Provider: 11/26/20 19:11 Source: patient Mode of arrival: Ambulatory Limitations: no limitations History of Present Illness HPI narrative: With a history of autoimmune hepatitis Danica's thyroiditis with the significantly restricted diet was out to eat on November 21 and had a supposedly gluten free sandwich that did not sit well at all and since then she has been having significant abdominal pain cramping and minimal bowel movements. She notes that yesterday she had a small bowel movement today she has had 2 additional small bowel movements. She continues to have rhythmic like recurrent lower abdominal pain. She describes significant low pelvic fullness. She had not noticed any prior temperatures but today was noted to have a temperature of 101.8. She describes no vomiting, headaches, skin changes or neurologic findings. Hepatitis she has chronically elevated liver enzymes and has been evaluated at [facility] with a liver biopsy in August of 2020 as part of a pre transplant list workup. Related Data Home Medications Medication Instructions Recorded Confirmed aspirin 81 mg tablet,delayed 81 mg PO QDAY #0 08/19/16 02/09/18 release biotin 2,500 mcg capsule 5,000 mcg PO Q DAY #0 08/19/16 02/09/18 cholecalciferol (vitamin D3) 50 2,000 unit PO Q DAY #0 08/19/16 02/09/18 mcg (2,000 unit) capsule (Vitamin D3) ginkgo biloba 120 mg tablet 120 mg PO Q DAY #0 08/19/16 02/09/18 levothyroxine 50 mcg tablet 50 mcg PO QAM #0 08/19/16 02/09/18 (Synthroid) magnesium oxide 400 mg (241.3 mg 400 mg PO Q DAY #0 08/19/16 02/09/18 magnesium) tablet metoprolol succinate 25 mg 12.5 mg PO QDAY #0 08/19/16 02/09/18 tablet,extended release 24 hr (Toprol XL) montelukast 10 mg tablet 10 mg PO QDAY #0 08/19/16 02/09/18 omega 6-eey-viy-fish oil 1,000 mg 1,000 mg PO BID #0 08/19/16 02/09/18 (120 mg-180 mg) capsule (Fish Oil) potassium 99 mg tablet 550 mg PO BID #0 08/19/16 02/09/18 verapamil 120 mg 24 hr 120 mg PO QDAY #0 08/19/16 02/09/18 capsule,extended release (Verelan) estriol VAGINAL 10/19/18 10/19/18 Allergies Allergy/AdvReac Type Severity Reaction Status Date / Time iodine Allergy Severe AUTOIMMUNE Verified 10/19/18 14:35 RXN, SKIN HARDENS, HAIR FALLS OUT Cephalosporins Allergy Unknown UNKNOWN Verified 10/19/18 14:35 cinnamon [CINNAMON] Allergy Unknown DIARRHEA Verified 10/19/18 14:35 itraconazole Allergy Unknown IRREGULAR Verified 10/19/18 14:35 HR Macrolide Antibiotics Allergy Unknown UNKNOWN Verified 10/19/18 14:35 Penicillins Allergy Unknown THROAT Verified 10/19/18 14:35 CLOSED, HIVES poliomyelitis vaccine,killed Allergy Unknown HIVES Verified 10/19/18 14:35 EGGS Allergy Unknown ECZEMA Uncoded 10/19/18 14:35 FENNEL Allergy Unknown DIARRHEA Uncoded 10/19/18 14:35 Review of Systems Review of Systems Narrative: Remainder of complete review of systems is otherwise unremarkable except for that included in the HPI. Patient History Medical History Alopecia Autoimmune hepatitis Cardiac arrhythmia (~07/19/07) Cataracts, bilateral (~2016) Chicken pox Degenerative joint disease (DJD) of lumbar spine Eczema Hearing loss (~1995) Heavy menstrual period Hemorrhoid Hypothyroidism (~02/2012) Measles Mumps Osteopenia Pulmonary embolism (~04/19/07) Rheumatoid arthritis Scarlet fever Tuberculosis Vertigo (~1995) Vision disorder Surgical History Anesthesia History of dilatation and curettage (~2006) History of endometrial ablation (~1989) History of eye surgery (~2017) History of hysterectomy (~06/2007) History of tonsillectomy (~1961) Hx of angiography Family History Father Cancer Mother Stroke Brother History of heart disease Brother Parkinson's disease Sister Stroke Grandmother Cancer Grandfather Stroke Grandmother History of heart disease Social History household members: none Smoking Status: Former smoker Smoking Status: Former smoker Substance Use Type: does not use Exam Narrative Exam Narrative: General: Healthy appearing, in mild distress. Able to give a complete and coherent history. Well-nourished well-developed HEENT: Moist mucous membranes, normal sclera with reactive pupils, left eye with slight increased discharged after recent eye drops Neck: No JVD, supple Respiratory: Lungs are clear to auscultation, no wheezing no rales no rhonchi. Full and symmetrical air movement Cardiac: Regular rate and rhythm no murmurs no bruits Abdomen: Soft, tender in the lower quadrants without rebound or guarding, good bowel tones. Rectal exam has no stool in the vault. She has no flank pain Skin: Warm and dry, no rashes Neurologic: Grossly neurologically intact with no obvious asymmetries or abnormalities Extremities: No trauma, well perfused Psych: Cooperative, appropriate insight and affect Initial Vital Signs Initial Vital Signs: Vital Signs Temperature 101.8 F H 11/26/20 18:20 Pulse Rate 88 11/26/20 18:20 Respiratory Rate 18 11/26/20 18:20 Blood Pressure 149/80 H 11/26/20 18:20 Pulse Oximetry 96 11/26/20 18:20 Course Orders Ordered: Discontinued Medications Magnesium Citrate (Magnesium Citrate 300 Ml Solution) 300 ml PO NOW ONE Stop: 11/26/20 21:13 Last Admin: 11/26/20 21:22 Dose: 300 ml Documented by: [email or web address] Vital Signs Vital signs: Vital Signs - 8 hr 11/26/20 18:20 Temperature 101.8 F H Pulse Rate 88 Respiratory Rate 18 Blood Pressure 149/80 H Pulse Oximetry 96 Medical Decision Making Lab Data Result diagrams: 11/26/20 18:40 11/26/20 18:40 Labs: Lab Results 11/26/20 11/26/20 11/26/20 Range/Units 18:40 18:40 18:40 WBC 9.4 (4.5-11.0) X10^3/uL RBC 4.38 (4.0-5.2) X10^6/uL Hgb 14.0 (12.0-16.0) g/dL Hct 41.0 (36-46) % MCV 93.6 (80-100) fL MCH 31.9 (26-34) PG MCHC 34.1 (30-36) % RDW 13.4 (11.6-14.8) % Plt Count 263 (150-400) X10^3/uL Neut % (Auto) 75.5 H (50-75) % Lymph % (Auto) 11.6 L (25-40) % [place] % (Auto) 12.0 (3-14) % Eos % (Auto) 0.4 L (2-4) % Baso % (Auto) 0.5 (0-2) % Neut # (Auto) 7100 H (3493-5147) /uL Lymph # (Auto) 1100 (8927-3296) /uL [place] # (Auto) 1100 H (0-900) /uL Eos # (Auto) 0 (0-450) /uL Baso # (Auto) 0 (0-100) /uL Sodium 137 (137-145) mmol/L Potassium 3.8 (3.4-5.1) mmol/L Chloride 102 (98-107) mmol/L Carbon Dioxide 28 (22-32) mmol/L BUN 16 (7-17) mg/dL Creatinine 0.98 (0.52-1.04) mg/dL Estimated GFR 55.0 L (>60) mL/min BUN/Creatinine Ratio 16.3 (6-22) Glucose 94 (80-110) mg/dL Lactate 1.0 (0.7-2.1) mmol/L Calcium 9.3 (8.4-10.2) mg/dL Total Bilirubin 1.4 H (0.2-1.3) mg/dL AST 53 H (14-36) IU/L ALT 52 H (<35) IU/L Alkaline Phosphatase 225 H (38-126) U/L Total Protein 7.9 (6.3-8.2) g/dL Albumin 4.3 (3.5-5.0) g/dL Globulin 3.6 (1.7-4.1) g/dL Albumin/Globulin Ratio 1.2 (1.0-2.8) Lipase 178 (23-300) U/L Procalcitonin (<0.5) ng/mL SARS-CoV-2 (PCR) (Negative) 11/26/20 11/26/20 Range/Units 18:40 21:10 WBC (4.5-11.0) X10^3/uL RBC (4.0-5.2) X10^6/uL Hgb (12.0-16.0) g/dL Hct (36-46) % MCV (80-100) fL MCH (26-34) PG MCHC (30-36) % RDW (11.6-14.8) % Plt Count (150-400) X10^3/uL Neut % (Auto) (50-75) % Lymph % (Auto) (25-40) % [place] % (Auto) (3-14) % Eos % (Auto) (2-4) % Baso % (Auto) (0-2) % Neut # (Auto) (0826-6117) /uL Lymph # (Auto) (7280-6555) /uL [place] # (Auto) (0-900) /uL Eos # (Auto) (0-450) /uL Baso # (Auto) (0-100) /uL Sodium (137-145) mmol/L Potassium (3.4-5.1) mmol/L Chloride (98-107) mmol/L Carbon Dioxide (22-32) mmol/L BUN (7-17) mg/dL Creatinine (0.52-1.04) mg/dL Estimated GFR (>60) mL/min BUN/Creatinine Ratio (6-22) Glucose (80-110) mg/dL Lactate (0.7-2.1) mmol/L Calcium (8.4-10.2) mg/dL Total Bilirubin (0.2-1.3) mg/dL AST (14-36) IU/L ALT (<35) IU/L Alkaline Phosphatase (38-126) U/L Total Protein (6.3-8.2) g/dL Albumin (3.5-5.0) g/dL Globulin (1.7-4.1) g/dL Albumin/Globulin Ratio (1.0-2.8) Lipase (23-300) U/L Procalcitonin 0.09 (<0.5) ng/mL SARS-CoV-2 (PCR) Negative (Negative) Urine Dip Bedside Urine Glucose Negative Bedside Urine Bilirubin - Negative Bedside Urine Ketone - Negative Urine Specific [place] 1.010 Bedside Urine Occult Blood - Negative Bedside Urine pH 7 Bedside Urine Protein - Negative Bedside Urine Urobilinogen - Negative Bedside Urine Nitrite - Negative Bedside Urine Leukocytes - Negative Esterase Point of care testing: Urine Dip Bedside Urine Glucose Negative Bedside Urine Bilirubin - Negative Bedside Urine Ketone - Negative Urine Specific [place] 1.010 Bedside Urine Occult Blood - Negative Bedside Urine pH 7 Bedside Urine Protein - Negative Bedside Urine Urobilinogen - Negative Bedside Urine Nitrite - Negative Bedside Urine Leukocytes - Negative Esterase Imaging Data acute abdomen series: Radiologist's Impression: FINDINGS: Surgical changes and devices: None. Chest: Lungs are clear. Heart size is normal. No pleural effusions. No pneumoperitoneum. Abdomen: Bowel gas pattern is normal. A mtxf-oq-kqrkjjjv amount of stool is seen in the colon. No suspicious calcifications. Visualized solid organ contours appear normal. Bones: No suspicious bony lesions. There is trace dextroconvex curvature of the spine and multilevel degenerative changes. IMPRESSION: Nonspecific nonobstructive bowel gas pattern in the abdomen. Mild to moderate stool in the colon. If symptoms persist, a CT of the abdomen and pelvis may be performed for further evaluation. Dictated by: Mick Anderson M.D. on 11/26/2020 at 20:41 Discharge Plan Departure Patient Disposition: Home Clinical Impression: Autoimmune hepatitis Abdominal pain Qualifiers: Abdominal location: generalized Qualified Code(s): R10.84 - Generalized abdominal pain Constipation Qualifiers: Constipation type: unspecified constipation type Qualified Code(s): K59.00 - Constipation, unspecified Instructions: DI for Constipation Activity Restrictions/Additional Instructions: Thank you for coming in today You did have a slight fever on arrival but no obvious source for this. Your liver enzymes seem to be close to their baseline elevation level. Your x-rays do show that you are constipated with quite a bit of stool on the right side of your colon and quite a bit of gas spread throughout. I have given you a bottle of magnesium citrate to help clean out her colon and I suspect once that stool moves and the the gas gets out your going to feel significantly better. If you have new or worsening symptoms or feel that your fever is progressing, please feel free to return and I am happy to re-evaluate Prescriptions: No Action metoprolol succinate [Toprol XL] 25 MG tablet extended release 24 hr 12.5 mg PO QDAY Qty: 0 RF: 0 verapamil [Verelan] 120 MG capsule,ext rel. pellets 24 hr 120 mg PO QDAY Qty: 0 RF: 0 levothyroxine [Synthroid] 50 MCG tablet 50 mcg PO QAM Qty: 0 RF: 0 montelukast 10 MG tablet 10 mg PO QDAY Qty: 0 RF: 0 ginkgo biloba 120 MG tablet 120 mg PO Q DAY Qty: 0 RF: 0 magnesium oxide 400 MG tablet 400 mg PO Q DAY Qty: 0 RF: 0 biotin 2,500 MCG capsule 5,000 mcg PO Q DAY Qty: 0 RF: 0 potassium 99 MG tablet 550 mg PO BID Qty: 0 RF: 0 cholecalciferol (vitamin D3) [Vitamin D3] 2,000 UNIT capsule 2,000 unit PO Q DAY Qty: 0 RF: 0 omega 3-kkm-iit-fish oil [Fish Oil] 1,000 MG capsule 1,000 mg PO BID Qty: 0 RF: 0 aspirin 81 MG tablet,delayed release (DR/EC) 81 mg PO QDAY Qty: 0 RF: 0 estriol cream vaginal RF: 0 Referrals: Brandon Reed MD [Primary Care Provider] -
--- NOTE | 2020-11-26 19:48 | DI.RAD.S_ITS ---
PROCEDURE: XR ACUTE ABDOMEN SERIES INDICATIONS: abdominal pain TECHNIQUE: One view chest and two views of the abdomen were acquired. COMPARISON: None. FINDINGS: Surgical changes and devices: None. Chest: Lungs are clear. Heart size is normal. No pleural effusions. No pneumoperitoneum. Abdomen: Bowel gas pattern is normal. A thgd-xo-vldjbahq amount of stool is seen in the colon. No suspicious calcifications. Visualized solid organ contours appear normal. Bones: No suspicious bony lesions. There is trace dextroconvex curvature of the spine and multilevel degenerative changes. IMPRESSION: Nonspecific nonobstructive bowel gas pattern in the abdomen. Mild to moderate stool in the colon. If symptoms persist, a CT of the abdomen and pelvis may be performed for further evaluation. Dictated by: Mick Anderson M.D. on 11/26/2020 at 20:41 Approved by: Mick Anderson M.D. on 11/26/2020 at 20:42
[2020-11-26] MEDS: MAGNESIUM CITRATE 300 ML SOLUTION PO (21:22)
[2020-11-26 21:38] LABS: COVID19 -Nasal RAPID Negative (Negative)
[2020-11-26 21:55] VITALS: BP 141/79; PULSE 81; RESP 18; TEMP 37.2; O2SAT 99
--- NOTE | 2020-11-27 17:52 | PC.NURSE ---
pt called and asked about the mag citrate. i asked dr. acosta if she could finish the other half of the bottle and dr acosta stated yes.
== END 2020-11-26 21:56 | disposition home or self-care (01) ==
PROVIDERS: Emergency Medicine; Emergency Provider Emergency Medicine; Family Provider Internal Medicine Cardiovascular Disease; PCP Family Medicine; Referring Provider Family Medicine
DX: R10.84 Generalized abdominal pain (principal); K59.00 Constipation, unspecified; K75.4 Autoimmune hepatitis; Z20.822 Contact with and (suspected) exposure to COVID-19
CPT/HCPCS: 36415; 74022; 80053; 81003; 83605; 83690; 84145; 85025; 87040; 87635; 99284; C9803

== ENCOUNTER → 2021-06-12 14:16 | Outpatient (CLI) | payer MEDICARE, OTHER, SELFPAY | PROVIDERS: Family Provider Internal Medicine Cardiovascular Disease; PCP Family Medicine; Referring Provider Naturopath; Visit Provider Naturopath | DX: M85.89 Other specified disorders of bone density and structure, multiple sites (principal); M06.9 Rheumatoid arthritis, unspecified; Z78.0 Asymptomatic menopausal state | CPT/HCPCS: 77080 ==

== ENCOUNTER → 2021-11-06 14:35 | Outpatient (CLI) | payer MEDICARE, OTHER, SELFPAY ==
[2021-11-06 19:47] LABS: Alanine Aminotransferase 31 IU/L (<35)
== END ==
PROVIDERS: Family Provider Internal Medicine Cardiovascular Disease; PCP Family Medicine; Referring Provider Internal Medicine Gastroenterology; Visit Provider Internal Medicine Gastroenterology
DX: K75.4 Autoimmune hepatitis (principal)
CPT/HCPCS: 36415; 84460

== ENCOUNTER → 2021-11-12 10:30 | Outpatient (CLI) | payer MEDICARE, OTHER, SELFPAY ==
--- NOTE | 2021-11-12 10:35 | DI.RAD.S_ITS ---
PROCEDURE: XR ORBIT LT INDICATIONS: FALL TECHNIQUE: 4 views of the orbits acquired. COMPARISON: None. FINDINGS: Bones: No definite acute fractures; orbital rims appear intact throughout. No suspicious bony lesions. Visualized sinuses appear clear. Soft tissues: No suspicious soft tissue calcifications or densities. IMPRESSION: No definite acute displaced orbital fracture identified radiographically. Maxillofacial CT could be obtained for further evaluation if clinically indicated. Dictated by: Mick Kinsey M.D. on 11/12/2021 at 11:17 Approved by: Mick Kinsey M.D. on 11/12/2021 at 11:21
== END ==
PROVIDERS: Family Provider Internal Medicine Cardiovascular Disease; PCP Family Medicine; Referring Provider Family Medicine; Visit Provider Family Medicine
DX: S05.12XA Contusion of eyeball and orbital tissues, left eye, initial encounter (principal); W19.XXXA Unspecified fall, initial encounter
CPT/HCPCS: 70200

== ENCOUNTER → 2021-11-14 09:32 | Outpatient (CLI) | payer MEDICARE, OTHER, SELFPAY ==
[2021-11-14 11:27] LABS: COVID19 -Nasal RAPID Negative (Negative)
== END ==
PROVIDERS: Family Provider Internal Medicine Cardiovascular Disease; PCP Family Medicine; Visit Provider Surgery
DX: Z20.822 Contact with and (suspected) exposure to COVID-19 (principal); Z01.812 Encounter for preprocedural laboratory examination
CPT/HCPCS: 87635; C9803

== ENCOUNTER 2021-11-17 09:30 | Day surgery (SDC) | payer MEDICARE, OTHER, SELFPAY ==
[2021-11-17] VITALS (7 sets, daily range): BP systolic 92–130; BP diastolic 55–70; PULSE 61–88; RESP 14–20; TEMP 36.1–36.6; O2SAT 96–99; BMI 25.8
--- NOTE | 2021-11-17 | PATH_ITS ---
[facility] Accession Number: [id number] . 01 Material submitted: . cecum - CECAL POLYPS . 01 Diagnosis: Cecal Polyps, Biopsy: Tubular adenomas. MRV 11/19/2021 1115 Local . 01 Electronically signed: . Sada Noel MD, Pathologist NPI- [id number] . 01 Gross description: . CECAL POLYPS: Received in formalin are 3 fragment(s) of alexander, soft tissue measuring 0.3 x 0.3 x 0.2 cm to 0.3 x 0.1 x 0.1 cm submitted entirely in 1 cassette(s) /CPE 11/18/2021 0633 Local . 01 Pathologist provided ICD-10: D12.0 . 01 CPT . 943556 Specimen Comment: A courtesy copy of this report has been sent to [phone] Performed at: 01 [facility] [address] [place] [address], [place], [place] [id number] MD Figueroa Dewitt MD Phone: [phone]
[2021-11-17] MEDS: SODIUM CHLORIDE 0.9% 1,000 ML 84 ML IV (10:01)
--- NOTE | 2021-11-17 10:45 | P.HP_ITS ---
History of Present Illness History of Present Illness Date Patient Seen: 11/17/21 Time Patient Seen: 10:46 Chief complaint: SDC Narrative: Personal history of colon polyp Patient History Medical History Alopecia Autoimmune hepatitis Cardiac arrhythmia (~07/19/07) Cataracts, bilateral (~2016) Chicken pox Degenerative joint disease (DJD) of lumbar spine Eczema Hearing loss (~1995) Heavy menstrual period Hemorrhoid Hypothyroidism (~02/2012) Measles Mumps Osteopenia Pulmonary embolism (~04/19/07) Rheumatoid arthritis Scarlet fever Tuberculosis Vertigo (~1995) Vision disorder Surgical History Anesthesia History of dilatation and curettage (~2006) History of endometrial ablation (~1989) History of eye surgery (~2017) History of hysterectomy (~06/2007) History of tonsillectomy (~1961) Hx of angiography Family & Social History Family History Father Cancer Mother Stroke Brother History of heart disease Brother Parkinson's disease Sister Stroke Grandmother Cancer Grandfather Stroke Grandmother History of heart disease Social History: household members none Tobacco & Substance use: Smoking Status Former smoker alcohol intake never Substance Use Type does not use Meds Home Medications and Allergies Home Medications Medication Instructions Recorded Confirmed Type aspirin 81 mg tablet,delayed 81 mg PO QDAY ##0 08/19/16 11/17/21 History release biotin 2,500 mcg capsule 5,000 mcg PO Q DAY ##0 08/19/16 11/17/21 History cholecalciferol (vitamin D3) 50 2,000 unit PO Q DAY ##0 08/19/16 11/17/21 History mcg (2,000 unit) capsule (Vitamin D3) ginkgo biloba 120 mg tablet 120 mg PO Q DAY ##0 08/19/16 11/17/21 History levothyroxine 50 mcg tablet 50 mcg PO QAM ##0 08/19/16 11/17/21 History (Synthroid) magnesium oxide 400 mg (241.3 mg 400 mg PO Q DAY ##0 08/19/16 11/17/21 History magnesium) tablet metoprolol succinate 25 mg 12.5 mg PO QDAY ##0 08/19/16 11/17/21 History tablet,extended release 24 hr (Toprol XL) montelukast 10 mg tablet 10 mg PO QDAY ##0 08/19/16 11/17/21 History omega 5-qhb-dip-fish oil 1,000 mg 1,000 mg PO BID ##0 08/19/16 11/17/21 History (120 mg-180 mg) capsule (Fish Oil) potassium 99 mg tablet 550 mg PO BID ##0 08/19/16 11/17/21 History verapamil 120 mg 24 hr 120 mg PO QDAY ##0 08/19/16 11/17/21 History capsule,extended release (Verelan) estriol See Rx Instructions .Route .COMPLEX 10/19/18 11/17/21 History Allergies Allergy/AdvReac Type Severity Reaction Status Date / Time iodine Allergy Severe AUTOIMMUNE Verified 11/17/21 09:47 RXN, SKIN HARDENS, HAIR FALLS OUT Cephalosporins Allergy Unknown UNKNOWN Verified 11/17/21 09:47 cinnamon [CINNAMON] Allergy Unknown DIARRHEA Verified 11/17/21 09:47 itraconazole Allergy Unknown IRREGULAR Verified 11/17/21 09:47 HR Macrolide Antibiotics Allergy Unknown UNKNOWN Verified 11/17/21 09:47 Penicillins Allergy Unknown THROAT Verified 11/17/21 09:47 CLOSED, HIVES poliomyelitis vaccine,killed Allergy Unknown HIVES Verified 11/17/21 09:47 EGGS Allergy Unknown ECZEMA Uncoded 10/19/18 14:35 FENNEL Allergy Unknown DIARRHEA Uncoded 10/19/18 14:35 Review of Systems Review of Systems ROS: Yes All systems reviewed with the patient and are negative except as otherwise documented Exam Vital Signs (past 8 hours): - 11/17/21 09:52 Temperature 97.8 F Pulse Rate 88 Respiratory Rate 18 Blood Pressure 130/70 Pulse Oximetry 97 Oxygen Delivery Method Room Air Oxygen Flow Rate 0 Oxygen Delivery Method Room Air Oxygen Flow Rate 0 Const General: cooperative HENMT Head: normal to inspection Eyes General: appearance normal, both eyes and all related structures Neck Neck: normal visual inspection Chest Chest: normal inspection of the chest Resp Effort & Inspection: normal respiratory effort Cardio Rate: regular rate GI Inspection: normal to inspection Skin General: no rashes or lesions noted Neuro General: patient alert and patient awake Extrem General: normal to inspection and no pedal edema Psych Appearance: grossly normal Assessment & Plan Assessment & Plan narrative: 76-year-old female with a personal history of adenomatous colon polyps. Surveillance colonoscopy is pursued today. Time Spent With Patient Critical Care time: I spent a total of [] minutes of critical care time on this patient's care t sravan; this time is exclusive of procedural time.
--- NOTE | 2021-11-17 10:47 | PM.PREOP ---
Pre-operative Note COVID-19 COVID-19 status: Negative Result date/Date tested (Pos, Neg/Pending): 11/14/21 Criteria for continued procedure: Possibility delay results in more complex future surgery or treatment Interval Note History & Physical reviewed/Exam performed by Physician: Yes Changes to H&P: No ASA Class (for procedural sedation): II
--- NOTE | 2021-11-17 11:17 | P.OP.COLON_ITS ---
Operative Date/Time/Diagnoses Date of procedure: 11/17/21 Time of procedure: 11:17 Pre-op diagnosis: Colon polyp history Post-op diagnosis: same Procedure & Clinicians Study performed: Colonoscopy with cold forceps polypectomy Indications: Colon polyp history Surgeon: Cheng Larios Procedure Notes SCOAP/Timeout: Done Procedure in detail: After the risks and benefits were explained, written and verbal informed consent was obtained. The patient was brought into the procedure room and placed into the left lateral decubitus position. Please see nurse order department supervisor notes for sedation details. Digital rectal examination was accomplished. The scope was introduced into the patient and advanced under direct visualization to the cecum as identified by the appendiceal orifice and ileocecal valve. The scope was slowly withdrawn to carefully examine the mucosa for any defects or lesions. Comprehensive imaging was accomplished throughout the rectum including the dentate line. The colon was decompressed, the scope was then removed from the patient who tolerated the procedure well. Pediatric colonoscope Bowel prep adequate Scope withdrawal time: 14 minutes Sedation minutes: 26 Complications: none Impression: Patient had diverticulosis noted throughout the left colon. She had moderate internal hemorrhoids grade 2 to grade 3. Nonthrombosed nonbleeding. In the cecum there was a diminutive polyp removed with cold forceps. A 2nd slightly larger 3-4 mm polyp in the proximal ascending colon was removed with cold forceps. There was a 3rd polyp at the hepatic flexure that was in an extremely ox cord position. This was so small (2-3 mm) that we simply could not get the forceps on to this polyp despite a considerable effort. I eventually it elected to leave this 1 alone. No additional pathology was appreciated throughout. Endoscopic diagnosis 1. Diverticulosis 2. Grade 2 to grade 3 hemorrhoids 3. Colon polyps Post-procedure Plan for aftercare: 1. Await histopathology 2. Repeat colonoscopy can be considered in 3 years time considering personal history of colon polyps. 3. Consider warm Epson salt baths intermittently this week to reduce hemorrhoidal engorgement Disposition: PACU
--- NOTE | 2021-11-17 15:17 | SUR.PHASEII ---
Late entry: Pt ready to go, left in stable condition.
== END 2021-11-17 12:30 | disposition home or self-care (01) ==
PROVIDERS: Family Provider Internal Medicine Cardiovascular Disease; PCP Family Medicine; Referring Provider Internal Medicine Gastroenterology; Visit Provider Internal Medicine Gastroenterology
PROC: 0DJD8ZZ Inspection of Lower Intestinal Tract, Via Natural or Artificial Opening Endoscopic (ICD-10-PCS; CPT 45378; principal; 2021-11-17 10:30)
DX: Z12.11 Encounter for screening for malignant neoplasm of colon (principal); Z86.010 Personal history of colon polyps; K57.30 Diverticulosis of large intestine without perforation or abscess without bleeding; K64.1 Second degree hemorrhoids; D12.0 Benign neoplasm of cecum
CPT/HCPCS: 45380; J2704

== ENCOUNTER → 2021-11-21 12:04 | Outpatient (CLI) | payer MEDICARE, OTHER, SELFPAY ==
--- NOTE | 2021-11-21 | DI.CT.S_ITS ---
PROCEDURE: CT HEAD/BRAIN WO CON INDICATIONS: contusion of eyeball and orbital tissue TECHNIQUE: Noncontrast 4.5 mm thick angled axial sections acquired from the foramen magnum to the vertex, with coronal and sagittal reformats. For radiation dose reduction, the following was used: automated exposure control, adjustment of mA and/or kV according to patient size. COMPARISON: [facility], CT, SINUS WITHOUT CONTRAST, 07/07/2011, 9:26. [facility], CT, SINUS SCREEN, 02/07/2008, 8:59. [facility], CR, XR ORBIT LT, 11/12/2021, 10:44. FINDINGS: Image quality: Excellent. CSF spaces: Basal cisterns are patent. No extra-axial fluid collections. The ventricles are symmetric in size and shape. Brain: No intracranial bleeds or masses. There is cerebral volume loss for age, with resultant ventricular and sulcal prominence. There are periventricular and deep white matter chronic small vessel ischemic changes. There is intracranial internal carotid artery atherosclerosis. Skull and face: In this patient with this given history, scrutiny is given to visualized facial bones. Within the visualized field of view of this study, no displaced fractures are seen. Calvarium and visualized facial bones appear intact, without suspicious lesions. Sinuses: Visualized sinuses and mastoids are clear. IMPRESSION: No displaced facial bone fractures are seen on this standard protocol head CT. If there is strong clinical concern for a facial bone fracture that is not seen on these images, please consider a dedicated maxillofacial CT for further evaluation. No significant paranasal sinus disease is seen. Unremarkable intracranial study for age, with note made of brain parenchymal volume loss and chronic small vessel ischemic change. Dictated by: Alvin Li M.D. on 11/21/2021 at 11:35 Approved by: Alvin Li M.D. on 11/21/2021 at 11:37
== END ==
PROVIDERS: Family Provider Internal Medicine Cardiovascular Disease; PCP Family Medicine; Referring Provider Family Medicine; Visit Provider Family Medicine
DX: S05.12XA Contusion of eyeball and orbital tissues, left eye, initial encounter (principal); X58.XXXA Exposure to other specified factors, initial encounter
CPT/HCPCS: 70450

== ENCOUNTER → 2021-12-26 10:17 | Outpatient (CLI) | payer MEDICARE, OTHER, SELFPAY ==
[2021-12-26 12:37] LABS: TSH w/ Reflex to FT4 0.07 uIU/mL (0.47-4.68)
[2021-12-26 13:25] LABS: Free T4, Direct Thyroxine 1.47 ng/dL (0.78-2.19)
== END ==
PROVIDERS: Family Provider Internal Medicine Cardiovascular Disease; PCP Family Medicine; Referring Provider Family Medicine; Visit Provider Family Medicine
DX: E03.9 Hypothyroidism, unspecified (principal); E06.3 Autoimmune thyroiditis
CPT/HCPCS: 36415; 84439; 84443

== ENCOUNTER → 2022-03-03 10:16 | Outpatient (CLI) | payer MEDICARE, OTHER, SELFPAY ==
[2022-03-03 11:04] LABS: Add Manual Diff / Slide Review NO; Basophils Absolute Auto 0 /uL (0-100); Basophils Percent Auto 0.7 % (0-2); Eosinophils Absolute Auto 0 /uL (0-450); Eosinophils Percent Auto 0.9 % (2-4); Hemoglobin 13.4 g/dL (12.0-16.0); Lymphocytes Absolute Auto 1200 /uL (1100-4500); Lymphocytes Percent Auto 27.9 % (25-40); Mean Corpuscular HGB Conc 34.3 % (30-36); Mean Corpuscular Hemoglobin 31.7 PG (26-34); Mean Corpuscular Volume 92.4 fL (80-100); Monocytes Absolute Auto 400 /uL (0-900); Monocytes Percent Auto 10.2 % (3-14); Neutrophils Absolute Auto 2600 /uL (1500-7000); Neutrophils Percent Auto 60.3 % (50-75); Platelet Count 281 X10^3/uL (150-400); Red Blood Cell Count 4.22 X10^6/uL (4.0-5.2); Red Cell Distribution Width 13.4 % (11.6-14.8); White Blood Cell Count 4.3 X10^3/uL (4.5-11.0)
[2022-03-03 11:21] LABS: Erythrocyte Sedimentation Rate 12 MM/HR (0-20)
[2022-03-03 11:58] LABS: Thyroid Stimulating Hormone < 0.015 uIU/mL (0.47-4.68)
[2022-03-03 14:38] LABS: C-Reactive Protein Quant < 0.5 mg/dL (<1.0)
[2022-03-03 17:29] LABS: Free T3, Triiodothyronine Free 3.17 pg/mL (2.77-5.27); Free T4, Direct Thyroxine 1.66 ng/dL (0.78-2.19)
== END ==
PROVIDERS: Family Provider Internal Medicine Cardiovascular Disease; PCP Family Medicine; Referring Provider Naturopath; Visit Provider Naturopath
DX: E06.3 Autoimmune thyroiditis (principal); M85.89 Other specified disorders of bone density and structure, multiple sites; R94.5 Abnormal results of liver function studies; M35.9 Systemic involvement of connective tissue, unspecified
CPT/HCPCS: 36415; 84439; 84443; 84481; 85025; 85651; 86140

== ENCOUNTER → 2022-04-06 16:07 | Outpatient (CLI) | payer MEDICARE, OTHER, SELFPAY ==
[2022-04-06 18:59] LABS: Alanine Aminotransferase 32 IU/L (<35); Albumin Globulin Ratio 1.3 (1.0-2.8); Alkaline Phosphatase 104 U/L (38-126); Aspartate Aminotransferase 43 IU/L (14-36); Bilirubin Total 0.8 mg/dL (0.2-1.3); Bilirubin Unconjugated 0.7 mg/dL (0.0-1.1); Globulin 3.2 g/dL (1.7-4.1); HEMOLYSIS < 15 (0-50); Total Protein 7.2 g/dL (6.3-8.2)
== END ==
PROVIDERS: Family Provider Internal Medicine Cardiovascular Disease; PCP Family Medicine; Referring Provider Internal Medicine Gastroenterology; Visit Provider Internal Medicine Gastroenterology
DX: K75.4 Autoimmune hepatitis (principal)
CPT/HCPCS: 36415; 80076

== ENCOUNTER → 2022-04-29 14:59 | Outpatient (CLI) | payer MEDICARE, OTHER, SELFPAY ==
--- NOTE | 2022-04-29 15:02 | DI.RAD.S_ITS ---
PROCEDURE: XR KNEE RT 3V INDICATIONS: RIGHT KNEE SERIES TECHNIQUE: 3 views of the knee were acquired. COMPARISON: None. FINDINGS: Bones: No fractures or dislocations. No suspicious bony lesions. Mild tricompartmental periarticular osteophyte formation. Soft tissues: Small knee joint effusion. No suspicious soft tissue calcifications. IMPRESSION: 1. Osteoarthritis. 2. No acute fracture. No osseous lesion. If symptoms and/or clinical suspicion for pathology persist, further assessment with repeat, or advanced imaging (e.g., CT, MRI, or bone scan) may be helpful for further assessment. Dictated by: Melodie Garner M.D. on 04/29/2022 at 16:12 Transcribed by: MANUEL on 04/29/2022 at 16:12 Approved by: Melodie Garner M.D. on 04/29/2022 at 16:31
== END ==
PROVIDERS: Family Provider Internal Medicine Cardiovascular Disease; PCP Family Medicine; Referring Provider Family Medicine; Visit Provider Family Medicine
DX: M25.561 Pain in right knee (principal); M17.11 Unilateral primary osteoarthritis, right knee
CPT/HCPCS: 73562

== ENCOUNTER → 2022-07-28 09:09 | Outpatient (CLI) | payer MEDICARE, OTHER, SELFPAY ==
[2022-07-28 11:25] LABS: Alanine Aminotransferase 36 IU/L (<35); Albumin 4.2 g/dL (3.5-5.0); Albumin Globulin Ratio 1.5 (1.0-2.8); Alkaline Phosphatase 96 U/L (38-126); Aspartate Aminotransferase 40 IU/L (14-36); BUN Creatinine Ratio 19.3 (6-22); Bilirubin Total 1.1 mg/dL (0.2-1.3); Blood Urea Nitrogen 22 mg/dL (7-17); Calcium 9.1 mg/dL (8.4-10.2); Carbon Dioxide 30 mmol/L (22-32); Chloride 104 mmol/L (98-107); Estimated Glomerular Filt Rate 49 mL/min (>60); Globulin 2.8 g/dL (1.7-4.1); Glucose 79 mg/dL (80-110); HEMOLYSIS < 15 (0-50); Sodium 140 mmol/L (137-145)
== END ==
PROVIDERS: Family Provider Internal Medicine Cardiovascular Disease; PCP Family Medicine; Referring Provider Internal Medicine Clinical Cardiac Electrophysiology; Visit Provider Internal Medicine Clinical Cardiac Electrophysiology
DX: I49.3 Ventricular premature depolarization (principal)
CPT/HCPCS: 36415; 80053; 93005

== ENCOUNTER → 2023-06-28 10:43 | Outpatient (CLI) | payer MEDICARE, OTHER, SELFPAY ==
[2023-06-28 11:37] LABS: Add Manual Diff / Slide Review NO; Basophils Absolute Auto 100 /uL (0-100); Basophils Percent Auto 1.4 % (0-2); Eosinophils Absolute Auto 100 /uL (0-450); Eosinophils Percent Auto 2.3 % (2-4); Hematocrit 41.1 % (36-46); Hemoglobin 13.4 g/dL (12.0-16.0); Lymphocytes Absolute Auto 1300 /uL (1100-4500); Lymphocytes Percent Auto 23.3 % (25-40); Mean Corpuscular HGB Conc 32.6 % (30-36); Mean Corpuscular Hemoglobin 30.3 PG (26-34); Monocytes Absolute Auto 600 /uL (0-900); Monocytes Percent Auto 10.8 % (3-14); Neutrophils Absolute Auto 3400 /uL (1500-7000); Neutrophils Percent Auto 62.2 % (50-75); Platelet Count 292 X10^3/uL (150-400); Red Blood Cell Count 4.42 X10^6/uL (4.0-5.2); Red Cell Distribution Width 13.7 % (11.6-14.8); White Blood Cell Count 5.4 X10^3/uL (4.5-11.0)
[2023-06-28 11:56] LABS: Erythrocyte Sedimentation Rate 14 MM/HR (0-20)
[2023-06-28 12:09] LABS: Alanine Aminotransferase 38 IU/L (<35); Albumin Globulin Ratio 1.1 (1.0-2.8); Alkaline Phosphatase 130 U/L (38-126); Aspartate Aminotransferase 45 IU/L (14-36); BUN Creatinine Ratio 25.5 (6-22); Bilirubin Total 1.3 mg/dL (0.2-1.3); Blood Urea Nitrogen 26 mg/dL (7-17); Carbon Dioxide 26 mmol/L (22-32); Chloride 107 mmol/L (98-107); Cholesterol 209 mg/dL (140-199); Estimated Glomerular Filt Rate 56 mL/min (>60); Gamma Glutamyl Transpeptidase 130 U/L (12-43); Globulin 3.5 g/dL (1.7-4.1); Glucose 86 mg/dL (80-110); HDL Cholesterol 72 mg/dL (40-60); HEMOLYSIS < 15 (0-50); LDL Cholesterol Calculated 123 mg/dL (<100); Potassium 3.8 mmol/L (3.4-5.1); Sodium 138 mmol/L (137-145); Total Protein 7.5 g/dL (6.3-8.2); Triglycerides 71 mg/dL (35-150)
[2023-06-28 12:11] LABS: Iron 126 ug/dL (37-170)
[2023-06-28 12:12] LABS: High Sensitivity CRP - Cardiac 2.5 mg/L (1.0-3.0)
[2023-06-28 12:23] LABS: Vitamin D 25 Hydroxy (D3) 73.3 ng/mL (30.0-100.0)
[2023-06-28 12:25] LABS: Free T3, Triiodothyronine Free 3.31 pg/mL (2.77-5.27); Free T4, Direct Thyroxine 1.16 ng/dL (0.78-2.19)
[2023-06-28 12:38] LABS: Thyroid Stimulating Hormone 0.641 uIU/mL (0.47-4.68)
[2023-06-28 12:43] LABS: Ferritin 43 ng/mL (11-264)
[2023-06-28 12:50] LABS: Cancer Antigen 125 < 5.5 U/mL (0-35)
[2023-06-30 17:22] LABS: Dehydroepiandrosterone Sulfate 37.7 ug/dL (13.9-142.8)
[2023-07-06 01:12] LABS: IgE Alternaria alternata <0.10 kU/L (Class 0); IgE Aspergillus fumigatus <0.10 kU/L (Class 0); IgE Aureobasidi pullulans <0.10 kU/L (Class 0); IgE Candida albicans <0.10 kU/L (Class 0); IgE Cladosporium herbarum <0.10 kU/L (Class 0); IgE Epicoccum purpur <0.10 kU/L (Class 0); IgE Fusarium proliferatum <0.10 kU/L (Class 0); IgE Mucor racemosus <0.10 kU/L (Class 0); IgE Penicillium chrysogen <0.10 kU/L (Class 0); IgE Phoma betae <0.10 kU/L (Class 0); IgE Setomelanomma rostrat <0.10 kU/L (Class 0); IgE Stemphylium herbarum <0.10 kU/L (Class 0)
== END ==
PROVIDERS: Family Provider Internal Medicine Cardiovascular Disease; PCP Family Medicine; Referring Provider Naturopath; Visit Provider Naturopath
DX: Z00.00 Encounter for general adult medical examination without abnormal findings (principal); E06.3 Autoimmune thyroiditis; K75.4 Autoimmune hepatitis; E78.2 Mixed hyperlipidemia; E06.5 Other chronic thyroiditis; R03.0 Elevated blood-pressure reading, without diagnosis of hypertension
CPT/HCPCS: 36415; 80053; 80061; 82306; 82627; 82728; 82977; 83088; 83540; 84439; 84443; 84481; 85025; 85651; 86140; 86304; 86628

== ENCOUNTER → 2023-06-29 09:09 | Outpatient (CLI) | payer MEDICARE, OTHER, SELFPAY ==
[2023-06-29 12:05] LABS: Cortisol AM (Before 10AM) 41.8 ug/dL (4.46-22.7)
== END ==
PROVIDERS: Family Provider Internal Medicine Cardiovascular Disease; PCP Family Medicine; Referring Provider Naturopath; Visit Provider Naturopath
DX: Z00.00 Encounter for general adult medical examination without abnormal findings (principal); E06.3 Autoimmune thyroiditis; K75.4 Autoimmune hepatitis; R03.0 Elevated blood-pressure reading, without diagnosis of hypertension; E78.2 Mixed hyperlipidemia
CPT/HCPCS: 36415; 82533

== ENCOUNTER → 2024-01-07 09:02 | Outpatient (CLI) | payer MEDICARE, OTHER, SELFPAY ==
--- NOTE | 2024-01-07 09:04 | DI.CT.S_ITS ---
PROCEDURE: CT CHEST WO CON INDICATIONS: CHRONIC COUGH TECHNIQUE: Noncontrast 5 mm thick sections acquired from the pulmonary apices to the posterior costophrenic angles. 1 mm lung window, 5 mm thick coronal and sagittal and 7 mm axial MIP reformats were then acquired. For radiation dose reduction, the following was used: automated exposure control, adjustment of mA and/or kV according to patient size. COMPARISON: CR, XR ACUTE ABDOMEN SERIES, 11/26/2020, 19:46. FINDINGS: Image quality: Excellent. Lower Neck: No enlarged lymph nodes. Thyroid: No thyroid nodules which require sonographic follow up, per consensus guidelines. Quality of thyroid visualization is limited by the noncontrast technique. Axillae: No enlarged lymph nodes. Chest Wall: Unremarkable. Bones: Unremarkable. Lungs and Pleura: No pneumothorax or pleural effusions. No acute appearing consolidation but the lung volumes are large and mild centrilobular emphysema it appears present suggestive of longstanding smoking history. This is best seen over the upper lobes. Additionally, mild bronchial wall thickening is seen in several of the bronchi leading into the lingular segment left upper lobe near the left ventricular apex. In this area there is mild chronic alveolar scarring suggestive of chronic bronchitis and prior inflammatory change in this area. A central mass lesion is not associated as cause of this appearance. However, there is a rounded soft tissue nodule at the right lower lobe best seen on , noncalcified, and measuring up to 1.0 cm in maximal axial dimension. No spiculation is associated. A posterior medial small right diaphragmatic defect allows extension of posterior right upper quadrant fat to extend into the pleural space in that area. The defect measures up to 1.5 cm without evidence of edema involving the herniated fat. No visceral content. Heart: Heart size is normal. No pericardial effusion. Thoracic Vessels: The aorta and pulmonary arteries demonstrate normal size. Mediastinum and Christina: No enlarged lymph nodes. Esophagus: No wall thickening. No hiatal hernia. Upper Abdomen: Visualized upper abdomen solid organs and bowel loops appear normal. IMPRESSION: 1. Large lung volumes, centrilobular emphysema, presumed longstanding smoking history. 2. Rounded soft tissue sharply demarcated nodule right lower lobe measuring 1 cm in maximal axial dimension. In this clinical circumstance the finding is worrisome for potential early manifestation of lung carcinoma. A nodule of this size could be further assessed accurately utilizing PET-CT scanning for evidence of malignancy. It is deep, in an area of significant motion during breathing, and immediately adjacent to the upper margin of the diaphragm. This structure is not likely safely accessible for a successful CT-guided biopsy. 3. Chronic bronchitis and mild subsegmental alveolar scarring at the lingular segment left upper lobe (near the left ventricular apex). This is a potential additional source of chronic cough. 4. Incidental finding of a small right posterior medial diaphragmatic defect through which a small portion of the adjacent subdiaphragmatic fat herniates. No evidence of incarceration or strangulation of the fat content and no visceral herniation is associated. Dictated by: Chao Redman M.D. on 01/07/2024 at 10:26 Approved by: Chao Redman M.D. on 01/07/2024 at 11:02
== END ==
PROVIDERS: Family Provider Internal Medicine Cardiovascular Disease; PCP Family Medicine; Referring Provider Family Medicine; Visit Provider Family Medicine
DX: J43.2 Centrilobular emphysema (principal); J42 Unspecified chronic bronchitis; R05.3 Chronic cough; R91.1 Solitary pulmonary nodule
CPT/HCPCS: 71250

== ENCOUNTER → 2024-04-29 11:04 | Outpatient (CLI) | payer MEDICARE, OTHER, SELFPAY ==
--- NOTE | 2024-04-29 11:09 | DI.RAD.S_ITS ---
PROCEDURE: XR HAND RT MIN 3V INDICATIONS: PAIN IN RT THUMB TECHNIQUE: 3 views of the hand(s) acquired. COMPARISON: None. FINDINGS: Bones: No fractures or dislocations. Mild diffuse interphalangeal joint degeneration. 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 Carpal bones are normally aligned. No suspicious bony lesions. Soft tissues: No suspicious soft tissue calcifications. IMPRESSION: No acute osseous abnormalities. 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 Mild diffuse interphalangeal joint degeneration. Dictated by: Tahir Solorzano M.D. on 05/01/2024 at 8:56 Approved by: Tahir Solorzano M.D. on 05/01/2024 at 8:57
== END ==
PROVIDERS: Family Provider Internal Medicine Cardiovascular Disease; PCP Family Medicine; Referring Provider Family Medicine; Visit Provider Family Medicine
DX: M18.11 Unilateral primary osteoarthritis of first carpometacarpal joint, right hand (principal); M19.031 Primary osteoarthritis, right wrist; M19.041 Primary osteoarthritis, right hand; M79.644 Pain in right finger(s)
CPT/HCPCS: 73130

== ENCOUNTER → 2024-05-23 09:14 | Outpatient (CLI) | payer MEDICARE, OTHER, SELFPAY ==
[2024-05-23 10:09] LABS: Add Manual Diff / Slide Review NO; Basophils Absolute Auto 100 /uL (0-100); Basophils Percent Auto 1.5 % (0-2); Eosinophils Absolute Auto 100 /uL (0-450); Eosinophils Percent Auto 1.8 % (2-4); Hematocrit 40.5 % (36-46); Hemoglobin 13.4 g/dL (12.0-16.0); Lymphocytes Absolute Auto 2500 /uL (1100-4500); Lymphocytes Percent Auto 40.4 % (25-40); Monocytes Absolute Auto 700 /uL (0-900); Neutrophils Absolute Auto 2800 /uL (1500-7000); Neutrophils Percent Auto 45.3 % (50-75); Platelet Count 303 X10^3/uL (150-400); Red Blood Cell Count 4.31 X10^6/uL (4.0-5.2); Red Cell Distribution Width 13.3 % (11.6-14.8); White Blood Cell Count 6.2 X10^3/uL (4.5-11.0)
[2024-05-23 10:19] LABS: Hemoglobin A1C% w Est Avg Glu 5.1 % (4.0-6.0)
[2024-05-23 10:29] LABS: Alanine Aminotransferase 32 IU/L (<35); Albumin 4.1 g/dL (3.5-5.0); Albumin Globulin Ratio 1.5 (1.0-2.8); Alkaline Phosphatase 124 U/L (38-126); Aspartate Aminotransferase 38 IU/L (14-36); BUN Creatinine Ratio 22.2 (6-22); Bilirubin Total 1.3 mg/dL (0.2-1.3); Blood Urea Nitrogen 26 mg/dL (7-17); Calcium 9.3 mg/dL (8.4-10.2); Carbon Dioxide 30 mmol/L (22-32); Chloride 103 mmol/L (98-107); Cholesterol 232 mg/dL (140-199); Estimated Glomerular Filt Rate 47 mL/min (>60); Gamma Glutamyl Transpeptidase 160 U/L (12-43); Globulin 2.7 g/dL (1.7-4.1); Glucose 84 mg/dL (80-110); HDL Cholesterol 91 mg/dL (40-60); HEMOLYSIS 20 (0-50); LDL Cholesterol Calculated 125 mg/dL (<100); Potassium 3.8 mmol/L (3.4-5.1); Sodium 139 mmol/L (137-145); Total Protein 6.8 g/dL (6.3-8.2); Triglycerides 80 mg/dL (35-150)
[2024-05-23 10:33] LABS: Rheumatoid Factor < 8.6 IU/mL (<12.0)
[2024-05-23 10:46] LABS: Vitamin D 25 Hydroxy (D3) 71.8 ng/mL (30.0-100.0)
[2024-05-23 10:48] LABS: Free T3, Triiodothyronine Free 3.64 pg/mL (2.77-5.27); Free T4, Direct Thyroxine 1.14 ng/dL (0.78-2.19)
[2024-05-23 11:00] LABS: Cortisol AM (Before 10AM) 1.92 ug/dL (4.46-22.7); Erythrocyte Sedimentation Rate 12 MM/HR (0-20)
[2024-05-23 11:01] LABS: Thyroid Stimulating Hormone 0.868 uIU/mL (0.47-4.68)
[2024-05-23 11:04] LABS: Ferritin 42 ng/mL (11-264)
[2024-05-24 03:36] LABS: CRP, High Sensitivity 1.51 mg/L (0.00-3.00)
== END ==
PROVIDERS: Family Provider Internal Medicine Cardiovascular Disease; PCP Family Medicine; Referring Provider Naturopath; Visit Provider Naturopath
DX: R94.5 Abnormal results of liver function studies (principal); D51.3 Other dietary vitamin B12 deficiency anemia; K57.32 Diverticulitis of large intestine without perforation or abscess without bleeding; E06.3 Autoimmune thyroiditis; M85.89 Other specified disorders of bone density and structure, multiple sites
CPT/HCPCS: 36415; 80053; 80061; 82306; 82533; 82542; 82728; 82977; 83036; 84439; 84443; 84481; 85025; 85651; 86140; 86430

== ENCOUNTER → 2024-07-05 08:51 | Outpatient (CLI) | payer MEDICARE, OTHER, SELFPAY ==
[2024-07-05 11:11] LABS: Alanine Aminotransferase 35 IU/L (<35); Albumin Globulin Ratio 1.5 (1.0-2.8); Alkaline Phosphatase 165 U/L (38-126); Aspartate Aminotransferase 49 IU/L (14-36); BUN Creatinine Ratio 17.7 (6-22); Bilirubin Total 1.3 mg/dL (0.2-1.3); Blood Urea Nitrogen 23 mg/dL (7-17); Calcium 9.3 mg/dL (8.4-10.2); Carbon Dioxide 27 mmol/L (22-32); Chloride 103 mmol/L (98-107); Estimated Glomerular Filt Rate 41 mL/min (>60); Globulin 2.6 g/dL (1.7-4.1); Glucose 125 mg/dL (80-110); HEMOLYSIS < 15 (0-50); Potassium 4.2 mmol/L (3.4-5.1); Sodium 138 mmol/L (137-145); Total Protein 6.6 g/dL (6.3-8.2)
[2024-07-05 11:41] LABS: Cortisol AM (Before 10AM) 16.5 ug/dL (4.46-22.7)
[2024-07-06 07:09] LABS: Thyroid Peroxidase Antibodies 24 IU/mL (0-34)
[2024-07-13 10:10] LABS: Thyroglobulin Level 28 ng/mL (.)
== END ==
PROVIDERS: Family Provider Internal Medicine Cardiovascular Disease; PCP Family Medicine; Referring Provider Naturopath; Visit Provider Naturopath
DX: R94.5 Abnormal results of liver function studies (principal); K57.32 Diverticulitis of large intestine without perforation or abscess without bleeding; E06.3 Autoimmune thyroiditis
CPT/HCPCS: 36415; 80053; 82533; 84432; 86376

== ENCOUNTER → 2024-07-19 | Outpatient (CLI) | payer MEDICARE, OTHER, SELFPAY ==
--- NOTE | 2024-07-19 19:17 | DI.MRI.S_ITS ---
PROCEDURE: MR CERVICAL SPINE WO CON INDICATIONS: pain on left side TECHNIQUE: Noncontrast sagittal T1 spin echo and T2 fast spin echo, sagittal STIR, foraminal oblique sagittal T2 fast spin echo, and axial gradient echo or T2 fast spin echo through the cervical spine. COMPARISON: None. FINDINGS: Image quality: Excellent. Alignment and Curvature: There is mild straightening of normal cervical lordosis. Bone Marrow: No marrow edema. No acute fracture or dislocation. Spinal Cord: Visualized spinal cord has normal size and signal. No cerebellar tonsillar herniation. Paraspinous Soft Tissues: No paravertebral masses. Prevertebral soft tissues are normal in thickness. C2-C3: Disc desiccation. Mild central disc bulge and bilateral uncovertebral hypertrophic changes are seen. No significant central canal stenosis. Mild bilateral neural foraminal narrowing is seen. C3-C4: There is disc desiccation. Broad-based disc bulge and bilateral uncovertebral hypertrophic changes are seen with [id number] central canal stenosis and moderate left worse than right bilateral neural foraminal narrowing. Bulging disc may be contacting left C4 nerve root. C4-C5: Disc desiccation. Broad-based disc bulge and bilateral uncovertebral hypertrophic changes with mild central canal stenosis, moderate right-sided neural foraminal narrowing and mild left-sided neural foraminal narrowing. Bulging disc is contacting bilateral C5 nerve roots. C5-C6: Loss of disc height and disc desiccation. Broad-based disc , more right-sided disc bulge and bilateral uncovertebral hypertrophic changes with moderate central canal stenosis, moderate to severe right-sided neural foraminal narrowing and mild left-sided neural foraminal narrowing. Bulging disc is seen contacting right C6 nerve root. C6-C7: Loss of disc height and disc desiccation. Broad-based disc bulge and bilateral uncovertebral hypertrophic changes with [id number] central canal stenosis and right worse than left bilateral neural foraminal narrowing. Bulging disc likely contacting right C7 nerve root. C7-T1: Normal appearance. IMPRESSION: 1. No marrow edema. No cervical spine fracture or dislocation. No abnormal cervical spinal cord signal. 2. Multilevel spondylitic changes throughout cervical spine causing various degrees of central canal stenosis and bilateral neural foraminal narrowing as above. Dictated by: Josh Arroyo M.D. on 07/22/2024 at 19:28 Approved by: Josh Arroyo M.D. on 07/22/2024 at 19:31
== END ==
LOC: MRI 19:15
PROVIDERS: Family Provider Internal Medicine Cardiovascular Disease; PCP Family Medicine; Referring Provider Family Medicine; Visit Provider Family Medicine
DX: M47.22 Other spondylosis with radiculopathy, cervical region (principal); M48.02 Spinal stenosis, cervical region; G89.29 Other chronic pain
CPT/HCPCS: 72141

== ENCOUNTER → 2024-09-07 15:48 | Outpatient (CLI) | payer MEDICARE, OTHER, SELFPAY ==
--- NOTE | 2024-09-07 15:51 | DI.CT.S_ITS ---
PROCEDURE: CT ABDOMEN PELVIS W CON INDICATIONS: ABDOM PAIN TECHNIQUE: After the administration of intravenous contrast, axial sections acquired from the lung bases to the pubic symphysis. Coronal and sagittal reformats were performed. For radiation dose reduction, the following was used: automated exposure control, adjustment of mA and/or kV according to patient size. COMPARISON: None. FINDINGS: Image quality: Diagnostic. Lower Chest: No significant findings. ABDOMEN: Liver: No solid mass. Gallbladder: No radiopaque gallstones or wall thickening. Biliary ducts: No biliary dilation. Pancreas: No ductal dilation. Spleen: Size is within normal limits. Adrenal Glands: No adrenal nodules. Kidneys and Ureters: No hydronephrosis. No solid mass. No complex renal cystic lesion which requires follow up. Stomach and Bowel: Normal colonic caliber, without significant wall thickening. Appendix is not definitively visualized, however there are no secondary signs of inflammation in the right lower quadrant to suggest acute appendicitis. Peritoneum: No abnormal intraperitoneal fluid. No free air. Ventral Wall: No significant ventral hernia. Abdominal Nodes: No retroperitoneal or mesenteric adenopathy by size criteria. Vessels: Aorta and inferior vena cava are normal in size. Dense aorto bi iliac atherosclerotic calcifications. PELVIS: Pelvic Organs: Unremarkable. Bladder: No bladder wall thickening, accounting for underdistention. Pelvic Nodes: No enlarged lymph nodes. Miscellaneous: There is a fat containing left inguinal hernia with fascial defect measuring 0.7 cm (2/101). Bones: No aggressive osseous abnormality. IMPRESSION: Left fat containing inguinal hernia with fascial defect measuring 0.7 cm. No other acute abdominopelvic process identified. Approved by: Anabel Estrella M.D.,Ph.D. on 09/08/2024 at 14:17
[2024-09-07 16:21] LABS: Estimated Glomerular Filt Rate 52 mL/min (>60)
== END ==
PROVIDERS: Family Provider Internal Medicine Cardiovascular Disease; PCP Family Medicine; Referring Provider Family Medicine; Visit Provider Family Medicine
DX: K40.90 Unilateral inguinal hernia, without obstruction or gangrene, not specified as recurrent (principal); R10.30 Lower abdominal pain, unspecified
CPT/HCPCS: 36415; 74176; 82565

== ENCOUNTER → 2025-03-01 08:37 | Outpatient (CLI) | payer MEDICARE, OTHER, SELFPAY ==
[2025-03-01 09:56] LABS: Vitamin D 25 Hydroxy (D3) 73.3 ng/mL (30.0-100.0)
[2025-03-01 09:57] LABS: Free T3, Triiodothyronine Free 3.53 pg/mL (2.77-5.27); Free T4, Direct Thyroxine 1.31 ng/dL (0.78-2.19)
[2025-03-01 10:11] LABS: Thyroid Stimulating Hormone 0.219 uIU/mL (0.47-4.68)
[2025-03-01 10:24] LABS: Uric Acid 5.2 mg/dL (2.5-6.2)
[2025-03-01 10:56] LABS: Cortisol AM (Before 10AM) 14.1 ug/dL (4.46-22.7)
[2025-03-01 11:00] LABS: Ferritin 76 ng/mL (11-264)
[2025-03-02 05:36] LABS: CRP, High Sensitivity 6.11 mg/L (0.00-3.00)
[2025-03-02 20:08] LABS: Anti Thyroglobulin Antibody <1.0 IU/mL (0.0-0.9)
== END ==
PROVIDERS: PCP Family Medicine; Referring Provider Naturopath; Visit Provider Naturopath
DX: E06.3 Autoimmune thyroiditis (principal); K57.32 Diverticulitis of large intestine without perforation or abscess without bleeding; M79.643 Pain in unspecified hand; M85.89 Other specified disorders of bone density and structure, multiple sites
CPT/HCPCS: 36415; 82306; 82533; 82728; 84439; 84443; 84481; 84550; 85651; 86140; 86430; 86800